=== PATIENT | male | born 1945 | race Caucasian/White ===

== ENCOUNTER 2020-03-14 20:52 | Emergency (ER) | payer BC, OTHER ==
[~2020-03-14] VITALS: Ht 177.8 cm; Wt 106.7 kg
[2020-03-14] MEDS ORDERED: METH-855 PO (22:02)
[2020-03-14] MEDS ORDERED: ASCO500T PO (22:02)
[2020-03-14] MEDS ORDERED: POTA20PW GT (22:02)
[2020-03-14] MEDS ORDERED: PEG1POW PO (22:02)
[2020-03-14] MEDS ORDERED: BACL1TAB9 PO (22:02)
[2020-03-14] MEDS ORDERED: METF500T13 PO (22:02)
[2020-03-14] MEDS ORDERED: SIMV20TA22 PO (22:02)
[2020-03-14] MEDS ORDERED: PANT40TA29 PO (22:02)
[2020-03-14] MEDS ORDERED: METF850T4 PO (22:02)
[2020-03-14] MEDS ORDERED: TROS20TA3 PO (22:02)
[2020-03-14] MEDS ORDERED: CALC1TAB63 PO (22:02)
[2020-03-14] MEDS ORDERED: CIPR-249 PO (23:29)
[2020-03-14 23:30] VITALS: BP 100/55
[2020-03-14] MEDS ORDERED: ACETAMINOPHEN TAB 650MG DOSE (2X325MG) PO ONE (23:30)
[2020-03-14] MEDS ORDERED: CIPROFLOXACIN 500MG TABLET PO ONE (23:30)
== END 2020-03-15 00:37 | disposition home or self-care (01) ==
LOC: EDBD 20:52 → M ED 20:52
DX: T83.018A Breakdown (mechanical) of other urinary catheter, initial encounter (principal); Y73.2 Prosthetic and other implants, materials and accessory gastroenterology and urology devices associated with adverse incidents; N39.0 Urinary tract infection, site not specified; G82.50 Quadriplegia, unspecified; Z93.3 Colostomy status; Z79.899 Other long term (current) drug therapy; Z79.84 Long term (current) use of oral hypoglycemic drugs

== ENCOUNTER 2020-04-22 13:59 | Emergency (ER) | payer MEDICARE, OTHER, BC ==
[~2020-04-22 13:59] MED LIST: ASCO500T PO; BACL1TAB9 PO; CALC1TAB63 PO; CIPR-249 PO; METF500T13 PO; METF850T4 PO; METH-855 PO; PANT40TA29 PO; PEG1POW PO; POTA20PW GT; SIMV20TA22 PO; TROS20TA3 PO
[2020-04-22 16:56] LABS: BASO % 0.1 % (0.0-1.0); EOS # 0.1 10^3/uL (0.0-0.5); EOS % 1.1 % (0.0-3.0); HEMATOCRIT 36.8 % (42.0-52.0); HEMOGLOBIN 11.7 g/dl (13.5-17.5); LYMPH # 1.7 10^3/uL (1.5-5.0); LYMPH % 20.5 % (24.0-44.0); MEAN CORPUSCULAR HEMOGLOBIN 29.2 pg (27.0-33.0); MEAN CORPUSCULAR HGB CONC 31.8 g/dl (32.0-36.5); MEAN CORPUSCULAR VOLUME 91.8 fl (80.0-96.0); MONO # 0.5 10^3/uL (0.0-0.8); MONO % 5.6 % (0.0-5.0); NEUTROPHILS % 72.3 % (36.0-66.0); PLATELET COUNT, AUTOMATED 171 10^3/uL (150-450); RED BLOOD COUNT 4.01 10^6/uL (4.30-6.10); WHITE BLOOD COUNT 8.3 10^3/uL (4.0-10.0)
--- NOTE | 2020-04-22 17:25 | REP ---
INDICATION: DYSPNEA/COUGH. COMPARISON: None. TECHNIQUE: Sitting AP portable chest radiograph. FINDINGS: Monitoring electrodes are seen. The patient is status post lower cervical spine fusion. There are degenerative changes in the shoulders bilaterally and in the thoracic spine. There is a linear density in the left lung base consistent with platelike atelectasis or fibrosis. Lung lr are otherwise clear. Heart is not enlarged. Pulmonary vasculature is not increased. IMPRESSION: Platelike atelectasis versus linear scarring left base. Otherwise no active disease. <Electronically signed by Ted Jovel > 04/22/20 [id number]
[2020-04-22 17:28] LABS: ALT/SGPT 19 U/L (12-78); BILIRUBIN,DIRECT 0.1 MG/DL (0.0-0.2); BILIRUBIN,TOTAL 0.7 MG/DL (0.2-1.0); BLOOD UREA NITROGEN 11 MG/DL (7-18); CALCIUM LEVEL 8.5 MG/DL (8.8-10.2); CARBON DIOXIDE LEVEL 28 MEQ/L (21-32); CHLORIDE LEVEL 102 MEQ/L (98-107); CK-MB VALUE MASS < 1.0 NG/ML (<3.6); CPK CREATINE PHOSPHOKINASE 96 U/L (39-308); CREATININE FOR GFR 0.72 MG/DL (0.70-1.30); GLOMERULAR FILTRATION RATE > 60.0 (>42); GLUCOSE, FASTING 113 MG/DL (70-100); MB/CK RELATIVE INDEX 1.04 (< OR =4); NT-PRO BNP 137 PG/ML (<125); POTASSIUM SERUM 3.9 MEQ/L (3.5-5.1); SODIUM LEVEL 135 MEQ/L (136-145); TOTAL PROTEIN 6.6 GM/DL (6.4-8.2); TROPONIN I < 0.02 NG/ML (< 0.10)
[2020-04-22] MEDS ORDERED: SIME180C PO (17:34)
[2020-04-22] MEDS ORDERED: ESSE250T PO (17:34)
[2020-04-22 18:45] VITALS: BP 152/66
--- NOTE | 2020-04-22 19:32 | ECGEPIP ---
[facility] - ED Test Date: 2020-04-22 Pat Name: IAN PHAM Department: Room: - Gender: Male [employer]: bo : 1945 Requested By: Mor Teixeira Order Number: [id number] Reading MD: Mor Teixeira Measurements Intervals [place] Rate: 70 P: 22 ID: [id number] QRS: 20 QRSD: 89 T: 19 QT: 397 QTc: 429 Interpretive Statements SINUS RHYTHM WITH OCCASIONAL VENTRICULAR PREMATURE COMPLEXES WITH FREQUENT SUP SUPRAVENTRICULAR PREMATURE COMPLEXES ABNORMAL RHYTHM ECG NONSPECIFIC ST T WAVE CHANGES NO PRIOR ECG FOR COMPARISON Electronically Signed on 04-22-2020 19:32:29 EST by Mor Teixeira
== END 2020-04-22 18:50 | disposition home or self-care (01) ==
LOC: M ED 13:59 → EDBD 13:59 → M ED 18:50
DX: R06.00 Dyspnea, unspecified (principal); Z79.899 Other long term (current) drug therapy; Z79.84 Long term (current) use of oral hypoglycemic drugs

== ENCOUNTER 2020-11-20 13:29 | Emergency (ER) | payer MEDICARE, BC, OTHER, MEDICAID ==
[~2020-11-20] VITALS: Ht 177.8 cm; Wt 118.2 kg
[~2020-11-20 13:29] MED LIST changes: +ESSE250T PO; -PEG1POW PO; +POLY17PO10 PO; +SIME180C25 PO
[2020-11-20 14:24] LABS: BASO % 0.2 % (0.0-1.0); EOS # 0.1 10^3/uL (0.0-0.5); EOS % 1.4 % (0.0-3.0); HEMATOCRIT 41.3 % (42.0-52.0); HEMOGLOBIN 13.2 g/dl (13.5-17.5); LYMPH % 20.1 % (24.0-44.0); MEAN CORPUSCULAR HEMOGLOBIN 29.6 pg (27.0-33.0); MEAN CORPUSCULAR VOLUME 92.6 fl (80.0-96.0); MONO # 0.3 10^3/uL (0.0-0.8); MONO % 6.7 % (2.0-8.0); NEUTROPHILS # 3.5 10^3/uL (1.5-8.5); NEUTROPHILS % 70.6 % (36.0-66.0); PLATELET COUNT, AUTOMATED 165 10^3/uL (150-450); RED BLOOD COUNT 4.46 10^6/uL (4.30-6.10); WHITE BLOOD COUNT 4.9 10^3/uL (4.0-10.0)
[2020-11-20 14:57] LABS: BLOOD UREA NITROGEN 9 MG/DL (7-18); CALCIUM LEVEL 8.6 MG/DL (8.8-10.2); CARBON DIOXIDE LEVEL 29 MEQ/L (21-32); CHLORIDE LEVEL 103 MEQ/L (98-107); CREATININE FOR GFR 0.74 MG/DL (0.70-1.30); GLOMERULAR FILTRATION RATE > 60.0 (>42); GLUCOSE, FASTING 195 MG/DL (70-100); SODIUM LEVEL 142 MEQ/L (136-145)
[2020-11-20] MEDS ORDERED: CLOPIDOGREL 300 MG TAB (PLAVIX) PO ONE (16:30)
[2020-11-20] MEDS ORDERED: HEPARIN SOD (PORCINE) 5000UNITS/ML 1ML VIAL/SYRINGE IV ONE (16:30)
[2020-11-20] MEDS ORDERED: HEPARIN DRIP 25,000 UNITS in IV 1 EA IV SCH (16:30)
[2020-11-20 17:05] LABS: INR 0.99; PROTHROMBIN TIME 13.3 SECONDS (12.5-14.3)
[2020-11-20 17:06] LABS: PARTIAL THROMBOPLASTIN TIME 30.1 SECONDS (24.2-38.5)
[2020-11-20 17:32] LABS: RSV AMPLIFICATION NEGATIVE (NEGATIVE)
[2020-11-20 19:45] VITALS: BP 110/58
== END 2020-11-20 19:54 | disposition short-term general hospital (02) ==
LOC: M ED 13:29 → EDBD 13:29 → M ED 19:54
DX: I21.4 Non-ST elevation (NSTEMI) myocardial infarction (principal); E11.9 Type 2 diabetes mellitus without complications; K21.9 Gastro-esophageal reflux disease without esophagitis; Z79.84 Long term (current) use of oral hypoglycemic drugs; Z79.899 Other long term (current) drug therapy; Z93.3 Colostomy status
CPT/HCPCS: 71045; 80048; 84484; 85025; 85610; 85730; 87631; 93005; 93041; 94760; 96374; 96375; 99285; J1644

== ENCOUNTER 2021-03-01 18:07 | Emergency (ER) | payer MEDICARE, BC, OTHER, MEDICAID ==
[~2021-03-01] VITALS: Ht 177.8 cm; Wt 115.9 kg
--- OUTSIDE RECORDS SUMMARY | 2021-03-01 20:01 | CCD ---
Author Author [facility] Organization [facility] Address Unknown Phone Unavailable Care Team Providers Care Senior Principal Name Role Phone Helen Hidalgo MD Unavailable Unavailable Helen Hidalgo MD Unavailable Unavailable Helen Hidalgo MD Unavailable Unavailable Helen Hidalgo MD Unavailable Unavailable Helen Hidalgo MD Unavailable Unavailable Helen Hidalgo MD Unavailable Unavailable Helen Hidalgo MD Unavailable Unavailable Helen Hidalgo MD Unavailable Unavailable Helen Hidalgo MD Unavailable Unavailable Helen Hidalgo MD Unavailable Unavailable Helen Hidalgo MD Unavailable Unavailable Cindy HARDIN MD Unavailable Unavailable Cindy HARDIN MD Unavailable Unavailable Cindy HARDIN MD Unavailable Unavailable Cindy HARDIN MD Unavailable Unavailable Cindy HARDIN MD Unavailable Unavailable Cindy HARDIN MD Unavailable Unavailable Cindy HARDIN MD Unavailable Unavailable Cindy HARDIN MD Unavailable Unavailable Cindy HARDIN MD Unavailable Unavailable Cindy HARDIN MD Unavailable Unavailable Cindy HARDIN MD Unavailable Unavailable Cindy HARDIN MD Unavailable Unavailable Cindy HARDIN MD Unavailable Unavailable Cindy HARDIN MD Unavailable Unavailable Cindy HARDIN MD Unavailable Unavailable Cindy HARDIN MD Unavailable Unavailable Cindy HARDIN MD Unavailable Unavailable Cindy HARDIN MD Unavailable Unavailable Cindy HARDIN MD Unavailable Unavailable Cindy HARDIN MD Unavailable Unavailable Cindy HARDIN MD Unavailable Unavailable Cindy HARDIN MD Unavailable Unavailable HUMAYUN, U KASEY MD Unavailable Unavailable HUMAYUN, U KASEY MD Unavailable Unavailable HUMAYUN, U KASEY MD Unavailable Unavailable HUMAYUN, U KASEY MD Unavailable Unavailable HUMAYUN, U KASEY MD Unavailable Unavailable HUMAYUN, U KASEY MD Unavailable Unavailable HUMAYUN, U KASEY MD Unavailable Unavailable HUMAYUN, U KASEY MD Unavailable Unavailable HUMAYUN, U KASEY MD Unavailable Unavailable HUMAYUN, U KASEY MD Unavailable Unavailable HUMAYUN, U KASEY MD Unavailable Unavailable HUMAYUN, U KASEY MD Unavailable Unavailable Re-disclosure Warning The records that you are about to access may contain information from federally-assisted alcohol or drug abuse programs. If such information is present, then the following federally mandated warning applies: This information has been disclosed to you from records protected by federal confidentiality rules (42 CFR part 2). The federal rules prohibit you from making any further disclosure of this information unless further disclosure is expressly permitted by the written consent of the person to whom it pertains or as otherwise permitted by 42 CFR part 2. A general authorization for the release of medical or other information is NOT sufficient for this purpose. The Federal rules restrict any use of the information to criminally investigate or prosecute any alcohol or drug abuse patient.The records that you are about to access may contain highly sensitive health information, the redisclosure of which is protected by Article 27-F of the [facility] Public Health law. If you continue you may have access to information: Regarding HIV / AIDS; Provided by facilities licensed or operated by the [facility] Office of Mental Health; or Provided by the [facility] Office for People With Developmental Disabilities. If such information is present, then the following [facility] mandated warning applies: This information has been disclosed to you from confidential records which are protected by state law. State law prohibits you from making any further disclosure of this information without the specific written consent of the person to whom it pertains, or as otherwise permitted by law. Any unauthorized further disclosure in violation of state law may result in a fine or halfway sentence or both. A general authorization for the release of medical or other information is NOT sufficient authorization for further disc losure. Allergies and Adverse Reactions Type Description Substance Reaction Status Data Source(s ) Propensity to adverse reactions NO KNOWN ALLERGIES NO KNOWN ALLERGIES [facility] Propensity to adverse reactions ALLERGIES NOT ON FILE ALLERGIES NOT O N FILE [facility] Services Encounters Encounter Providers Location Date Indications Data Source(s ) Inpatient Attender: KASEY HARDIN MDAt tender: Helen Hidalgo MDAdmitter: Helen Hidalgo MD [id number] 11/20/2020 09:21:00 PM EDT - 11/22/2020 04:56:[address] [facility] Patient discharged. Unknown [address] [address] 08/16/2020 12:00:00 AM EDT eCW1 ([facility]) (WND STRTCH) Stretcher Required Patients [address] [place] [address] 07/21/2020 12:00:00 AM EST eCW1 ([facility]) Unknown [address] [address] 07/20/2020 12:00:00 AM EST eCW1 ([facility]) Unknown [address] [address] 07/08/2020 12:00:00 AM EST eCW1 ([facility]) (WND STRTCH) Stretcher Required Patients [address] [place] [address] 07/07/2020 12:00:00 AM EST eCW1 ([facility]) (WND STRTCH) Stretcher Required Patients [address] [place] [address] 06/23/2020 12:00:00 AM EST eCW1 ([facility]) Unknown [address] [address] 06/16/2020 12:00:00 AM EST eCW1 ([facility]) (WND STRTCH) Stretcher Required Patients [facility] [place] [address] 06/09/2020 12:00:00 AM EST eCW1 ([facility]) Medications Medication Brand Name Start Date Product Form Dose Route Admi nistrative Instructions Pharmacy Instructions Status Indications Reaction Description Data Source(s) Acetaminophen 325 MG Oral Tablet acetaminophen (TYLENO L) 325 MG tablet acetaminophen (TYLENOL) 325 MG tablet 11/22/2020 12:00:00 AM EDT 65 0 mg Oral active Take 2 tablets (650 mg total) by mouth every 6 (six) hours as needed [facility] sodium chloride 0.9% (NS) infusion [id number] 11/21/2020 05:00:00 P M EDT Intravenous completed at 100 mL/hr, Intravenous, Continuous, Starting on 11/21/20 at 1700, For 3 hours, Post-op [facility] Medication administered onsite Acetaminophen 325 MG Oral Tablet acetaminophen (TYLENO L) 325 MG tablet 650 mg acetaminophen (TYLENOL) 325 MG tablet 650 mg 11/21/2020 04:33:04 PM EDT 650 mg Oral active 650 mg, Or al, Every 4 hours PRN, headaches, and non cardiac pain, Starting on 11/21/20 at 1633, Post-op
"Maximum dose of acetaminophen is 4,000 mg from all sources in 24 hours."
[facility] Medication administered onsite Nitroglycerin 0.4 MG Sublingual Tablet n itroglycerin (NITROSTAT) SL tablet 0.4 mg nitroglycerin (NITROSTAT) SL tablet 0.4 mg 11/21/2020 04:33:04 P M EDT 0.4 mg Sublingual active 0.4 mg, S ublingual, Every 5 min PRN, chest pain, Starting on 11/21/20 at 1633, Post-op
May administer every 5 minutes for 3 doses and call cardio lab MD.
[facility] Medication administered onsite iopamidol (ISOVUE-370) 76 % [id number] 11/21/2020 03:49:58 PM EDT active As needed, Starting on 11/21/20 at 1549, Intra-Proc edure [facility] Medication administered onsite lidocaine 1 % injection [id number] 11/21/2020 03:38:42 PM EDT active As needed, Starting on Sun at 1538, Intra-Procedure [facility] Medication administered onsite fentaNYL Citrate (PF) (SUBLIMAZE) injection [id number] 11/21/2020 03:25:38 PM EDT active As neede d, Starting on 11/21/20 at 1525, Intra-Procedure [facility] Medication administered onsite 2 ML Midazolam 1 MG/ML Injection midazolam (VERSED) in jection midazolam (VERSED) injection 11/21/2020 03:25:30 PM EDT active As needed, Starting on 11/21/20 at 1525, Intra-Procedure [facility] Medication administered onsite clopidogrel 75 MG Oral Tablet clopidogrel (PLAVIX) tab let 75 mg clopidogrel (PLAVIX) tablet 75 mg 11/21/2020 02:00:00 PM EDT 75 mg Oral active 75 mg, Oral, Daily, First dose on 11/21/[address] [facility] Medication administered onsite Calcium Carbonate 1250 MG / Cholecalcife rol 200 UNT Oral Tablet calcium-vitamin D (OSCAL-500) 500-200 MG-UNIT per tablet 1 tablet calcium-vitamin D (OSCAL-500) 500-200 MG-UNIT per tablet 1 tablet 11/21/2020 09:00:00 AM EDT 1 {tbl } Oral active 1 tablet, Oral, Daily, First dose on 11/21/[address] [facility] Medication administered onsite Magnesium Oxide (MAG-OX) tablet 200 mg [id number] 09:00:00 AM EDT 200 mg Oral active 200 mg, Oral, Da enriqueta, First dose on 11/21/[address] [facility] Medication administered onsite potassium chloride (KLOR-CON) packet 20 mEq [id number] 11/21/2020 09:00:00 AM EDT 20 meq Oral active 20 mEq, Oral, Daily, First dose on 11/21/[address] [facility] Medication administered onsite POLYETHYLENE GLYCOL 3350 142 MG/ML Oral Solution polyethylene glycol (GLYCOLAX) packet 17 g polyethylene glycol (GLYCOLAX) packet 17 g 11/21/2020 09:00:00 AM EDT 17 g Oral active 17 g, Or al, Daily, First dose on 11/21/20 at 0900
hold for loose stools
[facility] Medication administered onsite pantoprazole 40 MG Delayed Release Oral Tablet pantoprazole (PROTONIX) EC tablet 40 mg pantoprazole (PROTONIX) EC tablet 40 mg 11/21/2020 09:00:00 AM E DT 40 mg Oral active Gastroesophageal Reflux Diseas e 40 mg, Oral, Daily, Indications: Gastroesophageal Reflux Disease, First dose on 11/21/[address] [facility] Gastroesophageal Reflux Disease Medication administered onsite Insulin Lispro 100 UNT/ML Injectable Naya ution insulin lispro (HumaLOG) injection 1-6 Units insulin lispro (HumaLOG) injection 1-6 Units 08:00:00 AM EDT U Subcutaneous active 1-6 Units, Subcutaneous, MEALSS, First dose on 11/21/20 at 0800
Frail 3 units Nutritional and Correction Insulin Scale Blood Glucose (mg/dl) <70 start hypoglycemia protocol Glucose &nbsp ; Eats >=50% Eats &l t;50% Eats Nothing (mg/dl) of meal of meal or NPO &nb sp; 70- 120 2 units 1 units 0 units 121-170 & nbsp; 3 units 2 units 0 units 171-220 &nbsp ; 4 units 2 units 1 units 221-270 &am p;nbsp; 4 units 3 units 1 units 271-320 &n bsp; 5 units 3 units 2 units 321- 370 5 units 4 units 2 units 371- 420 6 units 4 units 3 units >420 call MD 6 units 5 units 3 units Test glucose within 30 minutes of insulin administration. Administer insulin within 15 minutes (before or after) of t he patient starting to eat. For patients that are NPO, use the NPO (correction) scale to cover POC glucose at 08:00, 12:00, 17:00.
[facility] Medication administered onsite methenamine hippurate 1000 MG Oral Tablet methenamine (HIPREX) tablet 1 g methenamine (HIPREX) tablet 1 g 11/20/2020 11:00:00 PM EDT 1 g O ral active 1 g, Oral, 2 times daily, First dose on 11/20/[address] [facility] Medication administered onsite 500 ML heparin sodium, porcine 50 UNT/ML Injection heparin infusion 25,000 units in 500 mL 0.45% NaCl heparin infusion 25,000 units in 500 mL 0.45% NaCl 11/20/2020 10:00:00 PM EDT 11.7 U/kg/h Intravenous abort ed 11.7 Units/kg/hr 115 kg (26.91 mL/hr, rounded to 26.9 mL/hr), Intravenous, at 26.9 mL/hr, Continuous, Starting on 11/20/20 at 2200
For Cardiac/BridgeaPTT (seconds) Heparin Dose (weight based)< 34 Bolus: 60 units/kg IV (Maximum bolus: 5,000 units) and increase infusion 3 units/kg/hr IV34 - 50 Bolus: 30 units/kg IV (Maximum bolus: 5,000 units) and increase infusion 2 units/kg/hr IV50.1 - 58 No bolus. Increase infusion 1 unit/kg/hr IV58.1 - 87 Therapeutic, No Udshfj02.1 - 97 Decrease infusion 1 unit/kg/hr IV 97.1 - 110Hold infusion for 30 minutes & decrease infusion 2 units/kg/hr IV> 110 Call MD if patient is bleeding. Hold infusion for 60 minutes & decrease infusion 3 units/kg/hr IVInitial heparin IV infusion rate:Do not exceed 1000 units/hr or 12 units/kg/hr initially (whichever is less)Infuse this medication only through single port tubing (SmartSite Infusion Set ref [id number]). Medication and tubing is to be discarded if infusion off for [address]
[facility] Medication administered onsite Simvastatin 20 MG Oral Tablet simvastatin (ZOCOR) tabl et 20 mg simvastatin (ZOCOR) tablet 20 mg 11/20/2020 10:00:00 PM EDT 20 mg Oral active 20 mg, Oral, Nightly, First dose on 11/20/[address] [facility] Medication administered onsite Baclofen 10 MG Oral Tablet baclofen (LIORESAL) tablet 20 mg baclofen (LIORESAL) tablet 20 mg 11/20/2020 10:00:00 PM EDT 20 mg Oral activ e 20 mg, Oral, 3 times daily, First dose on 11/20/[address] [facility] Medication administered onsite normal saline flush 0.9 % injection 3 mL [id number] 11/20/2020 10:00:00 PM EDT 3 mL Intravenous active 3 mL , Intravenous, Every 8 hours (scheduled), First dose on 11/20/20 at 2200
flush per protocol, D/C Main IV fluid if appropriate
[facility] Medication administered onsite trospium chloride 20 MG Oral Tablet trospium (SANCTURA ) tablet 20 mg trospium (SANCTURA) tablet 20 mg 11/20/2020 10:00:00 PM EDT 20 mg Oral active 20 mg, Oral, 2 times daily, First dose on 11/20/[address] [facility] Medication administered onsite 1 ML heparin sodium, porcine 1000 UNT/ML Injection heparin (porcine) injection 100-5,000 Units heparin (porcine) injection 100-5,000 Units 11/20/2020 09:26:37 PM EDT U Intravenous aborted 100- 5,000 Units, Intravenous, As needed, other, Starting on 11/20/20 at 2126
Round dose to nearest 100 units aPTT: < 34 &n bsp; Bolus: 60 units/kg IV (Maximum bolus: 5,000 units) 34 - 50 Bolus: 30 units/kg IV (Maximum bolus: 5,000 units)
[facility] Medication administered onsite Insurance Providers Payer name Policy type / Coverage type Policy ID Covered alliance party ID Covered alliance party's relationship to garcia Policy Garcia Plan Information COMMERCIAL GENERIC [id number] Vale [id number] MEDICARE A [id number] Self [id number] V33 MEDICARE [id number] Vale [id number] [id number] COMMERCIAL GENERIC [id number] Vale [id number] EMPIRE PLAN [facility] U [id number] [facility] [id number] Medicare [id number] Self [id number] V33 Medicare [id number] Self [id number] [id number] MEDICAID [id number] Self [id number] EXCELLUS BCBS [id number] Formerly Named [facility] YLS [id number] MEDICAID [id number] Vale [id number] ADMINISTRATION [id number] SP [id number] ELMA [id number] SP [id number] [facility] [id number] [facility] [id number] Excellus [id number] self [id number] MEDICARE PART B MCR [id number] A [id number] MEDICARE PART A MCR [id number] A [id number] [id number] [facility] [id number] self [id number] Excellus [id number] Spouse [id number] Medicaid [id number] Self [id number] Medicare [id number] Self [id number] V33 Medicare [id number] Self [id number] V33 [facility] [id number] 89 [id number] [facility] MEDICARE PART B [facility] [id number] A [id number] MEDICARE PART A MCR [id number] A [id number] MEDICARE PART B MCR [id number] A [id number] MEDICARE PART A MCR [id number] A [id number] MEDICARE [id number] SP [id number] A [facility] MEDICA[facility] [id number] SP [id number] MEDICARE [id number] SP [id number] MEDICARE [id number] SP [id number] [facility] [id number] BCBS [facility] RAISSA DIV [id number] COMMERCIAL GENERIC [id number] COMMERCIAL GENERIC [id number] Vale [id number] 'S ADMINISTRATION [id number] SP [id number] ELMA [id number] SP [id number] OTHER B [id number] Self [id number] V33 EMEDNY [id number] SP [id number] Problems, Conditions, and Diagnoses Code Display Name Description Problem Type Effective Dates Data Source(s) G82.50 Quadriplegia, unspecified Quadriplegia, unspecified Di agnosis 11/20/2020 09:21:[address] [facility] E11.9 Type 2 diabetes mellitus without complic ations Type 2 diabetes mellitus without complic Diagnosis 11/20/2020 09:21:[address] [facility] Z93.3 Colostomy status Colostomy status Diagnosis 11/20/2020 09 :21:[address] [facility] Z97.8 Presence of other specified devices Presence of other specified devices Diagnosis 11/20/2020 09:21:00 PM EDT [facility] I21.4 Non-ST elevation (NSTEMI) myocardial inf arction Non-ST elevation (NSTEMI) myocardial inf Diagnosis 11/20/2020 09:21:[address] [facility] R07.9 Chest pain, unspecified Chest pain, unspecified Diagno sis 11/20/2020 09:21:[address] [facility] Z97.8 Chronic indwelling Pierre catheter Chronic indwel ling Pierre catheter [id number] 11/20/2020 12:00:00 AM EDT [facility] Z93.[address] Colostomy in place [id number] 12:00:[address] [facility] E11.9 DM (diabetes mellitus) DM (diabetes mellitus) [id number] 11/20/2020 12:00:[address] [facility] G82.50 Quadriplegia Quadriplegia [id number] 11/20/2020 12:00:[address] [facility] I21.4 NSTEMI (non-ST elevated myocardial infar ction) NSTEMI (non-ST elevated myocardial infarction) [id number] 11/20/2020 12:00:00 AM EDT [facility] R07.9 Chest pain Chest pain [id number] 11/20/2020 12:00:[address] [facility] L89.153 [id number] Stage III pressure ulcer of sacral region Problem 06/09/2020 12:00:00 AM EST eCW1 ([facility]) Surgeries/Procedures Procedure Description Date Indications Data Source(s) BLOOD COUNT COMPLETE AUTOMATED <td>CBC</td><td>Routine </td><td>11/22/2020 4:37 AM EDT</td><td></td><td> </td> 11/22/2020 04:37:[address] [facility] MAGNESIUM <td>MAGNESIUM</td><td>Routin e</td><td>11/22/2020 4:37 AM EDT</td><td></td><td> </td> 11/22/2020 04:37:[address] [facility] BASIC METABOLIC PANEL CALCIUM TOTAL <td>BASIC METABOLI C PANEL</td><td>Routine</td><td>11/22/2020 4:37 AM EDT</td><td></td><td> </td> 11/22/2020 04:37:[address] [facility] GLUC BLD GLUC MNTR DEV CLEARED FDA SPEC HOME USE <td>P OCT GLUCOSE</td><td>Routine</td><td>11/21/2020 8:43 PM EDT</td><td></td><td> </td> 11/21/2020 08:43:[address] [facility] CARDIAC CATHETERIZATION <td>CARDIAC CATHETERIZATION</td><td>Routine</td><td>11/21/2020 3:50 PM EDT</td><td> Chest pain, unspecified type NSTEMI (non-ST elevated myocardial infarction)</td><td> </td> 11/21/2020 03:50:51 PM EDT NSTEMI (non-ST elevated myocardial infar ction)Chest pain, unspecified type [facility] NSTEMI (non-ST elevated myocardial infar ction) Chest pain, unspecified type GLUC BLD GLUC MNTR DEV CLEARED FDA SPEC HOME USE <td>P OCT GLUCOSE</td><td>Routine</td><td>11/21/2020 12:22 PM EDT</td><td></td><td> </td> 11/21/2020 12:22:[address] [facility] ECHO TTHRC R-T 2D W/WOM-MODE COMPL SPEC&COLR DOP <td>E CHOCARDIOGRAM TRANSTHORACIC</td><td>Routine</td><td>11/21/2020 11:42 AM EDT</td><td></td><td> </td> 11/21/2020 11:42:[address] [facility] TROPONIN QUANTITATIVE <td>TROPONIN I</td><td>Routi ne</td><td>11/21/2020 6:43 AM EDT</td><td></td><td> </td> 11/21/2020 06:43:[address] [facility] THROMBOPLASTIN TIME PARTIAL PLASMA/WHOLE BLOOD <td>APTT</td><td>STAT</td><td>11/21/2020 6:43 AM EDT</td><td></td><td> </td> 11/21/2020 06:43:[address] [facility] BLOOD COUNT COMPLETE AUTOMATED <td>CBC</td><td>Routine </td><td>11/21/2020 6:43 AM EDT</td><td></td><td> </td> 11/21/2020 06:43:[address] [facility] BASIC METABOLIC PANEL CALCIUM TOTAL <td>BASIC METABOLI C PANEL</td><td>Routine</td><td>11/21/2020 6:43 AM EDT</td><td></td><td> </td> 11/21/2020 06:43:[address] [facility] PROCALCITONIN (PCT) <td>PROCALCITONIN</td><td>ST AT</td><td>11/20/2020 10:19 PM EDT</td><td></td><td> </td> 11/20/2020 10:19:[address] [facility] NT PRO BNP <td>NT PRO BNP</td><td>STAT< /td><td>11/20/2020 10:19 PM EDT</td><td></td><td> </td> 11/20/2020 10:19:[address] [facility] TROPONIN QUANTITATIVE <td>TROPONIN I</td><td>STAT< /td><td>11/20/2020 10:19 PM EDT</td><td></td><td> </td> 11/20/2020 10:19:[address] [facility] THROMBOPLASTIN TIME PARTIAL PLASMA/WHOLE BLOOD <td>APTT</td><td>STAT</td><td>11/20/2020 10:19 PM EDT</td><td></td><td> </td> 11/20/2020 10:19:[address] [facility] PROTHROMBIN TIME <td>PROTIME-INR</td><td>STAT </td><td>11/20/2020 10:19 PM EDT</td><td></td><td> </td> 11/20/2020 10:19:[address] [facility] BLOOD COUNT COMPLETE AUTO&AUTO DIFRNTL WBC COUNT <td>C BC AND DIFFERENTIAL</td><td>STAT</td><td>11/20/2020 10:19 PM EDT</td><td></td><td> </td> 11/20/2020 10:19:[address] [facility] MAGNESIUM <td>MAGNESIUM</td><td>STAT</ td><td>11/20/2020 10:19 PM EDT</td><td></td><td> </td> 11/20/2020 10:19:[address] [facility] HEMOGLOBIN GLYCOSYLATED A1C <td>HEMOGLOBIN A1C</td><td >STAT</td><td>11/20/2020 10:19 PM EDT</td><td></td><td> </td> 11/20/2020 10:19:[address] [facility] LIPID PANEL <td>LIPID PANEL</td><td>Add- On</td><td>11/20/2020 10:19 PM EDT</td><td></td><td> </td> 11/20/2020 10:19:[address] [facility] COMPREHENSIVE METABOLIC PANEL <td>COMPREHENSIVE METABO LIC PANEL</td><td>STAT</td><td>11/20/2020 10:19 PM EDT</td><td></td><td> </td> 11/20/2020 10:19:[address] [facility] XR CHEST PORTABLE <td>XR CHEST PORTABLE</td><t d>STAT</td><td>11/20/2020 9:52 PM EDT</td><td></td><td> </td> 11/20/2020 09:52:[address] [facility] ECG ROUTINE ECG W/LEAST 12 LDS TRCG ONLY W/O I&R <td>E CG 12- LEAD</td><td>STAT</td><td>11/20/2020 9:28 PM EDT</td><td></td><td></td> 11/20/2020 09:28:37 PM EDT [facility] FINE NEEDLE ASPIRATION W/O IMAGING GUIDANCE 07/21/2020 12:00:00 AM EST eCW1 ([facility]) FINE NEEDLE ASPIRATION W/O IMAGING GUIDANCE 06/23/2020 12:00:00 AM EST eCW1 ([facility]) FINE NEEDLE ASPIRATION W/O IMAGING GUIDANCE 06/09/2020 12:00:00 AM EST eCW1 ([facility]) Results ID Date Data Source [id number] 02/07/2021 12:00:00 AM EDT [facility] Name Value Range Interpretation Code Description Data Amina rce(s) Supporting Document(s) SARS-CoV-2 (COVID-19) RNA [Presence] in Respiratory specimen by LARRY with probe detection Negative [facility] This lab was ordered by [facility] and [facility] ID Date Data Source [id number] 11/24/2020 08:32:02 AM EDT [facility] Name Value Range Interpretation Code Description Data Amina rce(s) Supporting Document(s) POC NOVA GLU 174 mg/dL (70-99) H [facility] [place] PERFORMED BY [facility] ID Date Data Source [id number] 11/22/2020 10:02:16 [facility] Name Date of Age Gend*PT [id number] Ian Pham 1945 74 years M IPPT Location Admission Date/Time Visit ID Attending [id number] 11/20/202120 --- Kasey Hardin MD([id number]) EPI ID CSN Admitting Provider [id number] Helen Hidalgo MD([id number])DISCHARGE SUMMARYRobert [id number]/18/1946dmitting provider: Helen Hidalgo MDDischarge provider: Kasey Hardin MDAdmission date: 11/20/2020 9:21 PMDischarge date: 11/22/2020dmission diagnoses: NSTEMI (non-ST elevated myocardial infarction) [I21.4]Discharge diagnosis:Patient Active Problem ListDiagnosis Chest pain NSTEMI (non-ST elevated myocardial infarction) Quadriplegia DM (diabetes mellitus) Colostomy in place Chronic indwelling Pierre catheterConsultations:Genesis Porras MDImagining and Procedures:CXR:IMPRESSION:No active pulmonary disease.Echo:Normal left ventricular systolic function and size with mild concentric leftventricular hypertrophy. Grade I diastolic dysfunctionNormal right ventricular systolic function and size.The left atrium appears mildly dilated.Mild aortic sclerosis without stenosis.The mitral valve leaflets appear mildly thickened. Trivial mitralinsufficiency.Mild tricuspid insufficiency with the resting pulmonary artery pressures mildlyelevated.Cardiac Cath:Mid LAD lesion is 20% stenosed.Mild CADHospital course:74/M with H/O DM2, HLD, Quadriplegia, Chronic Pierre, presents to [facility] c/o chestpressure. Pt developed midsternal chest pressure while eating lunch today.Family became concerned after pt c/o of numbness in his arms and legs and calledEMS. Pt states that he occasionally has similar episodes of numbness which isresolved by repositioning. EMS gave pt 324 mg ASA and pt's pain and numbnessresolved during EMS ride/before he arrived to [facility]. Pt was foundto have mild troponin elevation and was loaded with Plavix and started on aHeparin gtt. Pt was subsequently transferred to [facility]. -Chest pressure/NSTEMITroponin 0 [facility] trop[facility] 0.61 and now 0.05Denies any chest pressure or limb tingling or numbness now [facility] heparin infusionEcho PCardiology consult called -DM2-A1C - 7SSI -Chronic Pierre/Bladder SpasmsContinue home medications, Baclofen, Tropsium, Methenamine -QuadriplegiaPt fell on ice while carrying wood in 2018 -HLDLipid panel- PContinue home medication, Statin -CODE STATUSFC -COVID19 Not Detected 11/20/2020 at [facility] Addendum: 11/23/2011Patient was seen by cardiology service. Cardiology Was recommended. Itrevealed minimal CAD with 20% LAD. Patient did not have any recurrence chestpain tingling and numbness. His vague chest pressure was noncardiac.An echo was also done which revealed normal LV function with no wall motionabnormality.Currently patient is hemodynamically stable and symptomatically at his baselineis going to be discharged back to home.PHYSICAL EXAMVital Signs: Temp: [97.5 F-98.8 F] 98 FHeart Rate: [61-72] 65Resp: [18] 18BP: (107-137)/(54-62) 126/59 I/O:Intake/Output Summary (Last 24 hours) at 11/22/2020 0941Last data filed at 11/22/2020 0500Gross per 24 hourIntake 290 mlOutput 525 mlNet -235 mlConstitutional - He is oriented to person, place, and time. He appearswell- developed and well-nourished. No distress.HENT - Normocephalic and atraumatic. External ears normal. Nose normal.Eyes - no conjunctival icterusNeck - No JVD present.Cardiovascular - Normal rate, regular rhythm, normal heart sounds. Exam revealsno gallop and no friction rub. No murmur heard.Pulmonary/Chest - Effort normal and breath sounds normal. No respiratorydistress. He has no wheezes, no rhonchi, no rales. He exhibits no chestwalltenderness.Abdominal - Soft. There is no tenderness. Bowel sounds are normal. He exhibitsno abdominal distention or mass. There is no rebound and no guarding. No largeabdominal hernia.Musculoskeletal - No peripheral edema.Neurological - He is alert and oriented to person, place, and time. He isquadriplegic.Skin - Warm and dry. No rash noted. He is not diaphoretic.Psychiatric - He has a normal mood and affect.Disposition: Home or Self CareDischarge condition: goodDischarge Instructions: An After Visit Summary was printed and given to thepatient.Your medication listSTART taking these medications Instructions Last Dose Given Morning Afternoon Evening Bedtime As Neededacetaminophen 325 MG tabletCommonly known as: TYLENOL Take 2 tablets (650 mg total) by mouth every 6 (six) hours as neededCONTINUE taking these medications Instructions Last Dose Given Morning Afternoon Evening Bedtime As Neededascorbic acid 500 MG tabletCommonly known as: VITAMIN C Take 500 mg by mouth dailybaclofen 20 MG tabletCommonly known as: LIORESAL Take 20 mg by mouth 4 (four) times a dayCalcium 600+D 600-400 MG-UNIT per tabletGeneric drug: Calcium Carbonate-Vitamin D Take 1 tablet by mouth 2 (two) times a dayDaily Radha per tablet Take 1 tablet by mouth dailyMagnesium Oxide 400 MG tabletCommonly known as: MAG-OX Take 800 mg by mouth 2 (two) times a daymetFORMIN 500 MG 24 hr tabletCommonly known as: GLUCOPHATE-XR Take 500 mg by mouth 2 (two) times a daymethenamine 1 g tabletCommonly known as: HIPREX Take 1 g by mouth 2 (two) times a day with mealspantoprazole 40 MG tabletCommonly known as: PROTONIX Take 40 mg by mouth dailypotassium chloride SA 20 MEQ tabletCommonly known as: K-DUR,KLOR-CON Take 40 mEq by mouth dailysenna-docusate 8.6-50 MGCommonly known as: PERICOLACE Take 1 tablet by mouth daily as needed for constipationsimethicone 80 MG chewable tabletCommonly known as: MYLICON Chew 80 mg dailysimvastatin 20 MG tabletCommonly known as: ZOCOR Take 20 mg by mouth nightlytrospium 20 MG tabletCommonly known as: SANCTURA Take 20 mg by mouth 2 (two) times a dayWhere to Get Your MedicationsThese medications were sent to [id number] [place], [place] [facility] [address] [facility] [place] [facility] [place] [address] [facility] [id number] acetaminophen 325 MG tabletTotal time spent for discharge was: greater than 30 minutesSignature: QUETA Streetate: November 22, 2020Time: 9:41 AMPh: [phone] Name Value Range Interpretation Code Description Data Amina rce(s) Supporting Document(s) ID Date Data Source [id number] 11/24/2020 08:31:57 AM EDT [facility] Name Value Range Interpretation Code Description Data Amina rce(s) Supporting Document(s) POC NOVA GLU 171 mg/dL (70-99) H [facility] [place] [facility] CLINICAL STAFF ID Date Data Source [id number] 11/22/2020 06:06:01 AM EDT [facility] Name Value Range Interpretation Code Description Data Amina rce(s) Supporting Document(s) SODIUM 140 mmol/L (136-145) [facility] POTASSIUM 3.8 mmol/L (3.6-5.2) [facility] CHLORIDE 106 mmol/L (100-108) [facility] CO2 28 mmol/L (22-31) [facility] ANION GAP 6 mmol/L (7-16) L [facility] UREA NITROGEN 10 mg/dL (7-24) [facility] CREATININE 0.65 mg/dL (0.80-1.30) L [facility] BUN/CREAT RATIO 15.4 RATIO (10.0-20.0) [facility] GLUCOSE 184 mg/dL (70-99) H [facility] CALCIUM 8.2 mg/dL (8.4-10.2) L [facility] GFR >60 ml/min/1.73m2 (>59) [facility] GFR ( AMER) >60 ml/min/1.73m2 (>59) [facility] GFR INTERPRETATION [facility] --NORMAL KIDNEY FUNCTION OR MILD DISEASE - GFR >OR= 60CHRONIC KIDNEY DISEASE - GFR 15 - 59RENAL FAILURE - GFR <15 Est. GFR calculation based on the MDRDstudy equation, which assumes a steadystate for creatinine. Est. GFR should notbe used for medication dosing. ID Date Data Source [id number] 11/22/2020 06:06:01 AM EDT [facility] Name Value Range Interpretation Code Description Data Amina rce(s) Supporting Document(s) MAGNESIUM 1.7 mg/dL (1.7-2.4) [facility] ID Date Data Source [id number] 11/22/2020 05:54:18 AM EDT [facility] Name Value Range Interpretation Code Description Data Amina rce(s) Supporting Document(s) WBC 4.6 10*3/uL (4.1-11.0) [facility] [place] RBC 4.06 10*6/uL (4.60-6.10) L [facility] HGB 12.3 g/dL (13.5-18.0) L [facility] HCT 36.8 % (41.0-53.0) L [facility] MCV 90.7 fL (80.0-95.0) [facility] MCH 30.4 pg (27.0-32.0) [facility] MCHC 33.6 g/dL (32.0-36.0) [facility] RDW 13.8 % (10.5-14.5) [facility] PLT 155 10*3/uL (150-450) [facility] MPV 8.4 fL (7.1-10.7) [facility] ID Date Data Source [id number] 11/21/2020 09:43:36 PM EDT [facility] Name Value Range Interpretation Code Description Data Amina rce(s) Supporting Document(s) POC NOVA GLU 128 mg/dL (70-99) H [facility] [place] [facility] CLINICAL STAFF ID Date Data Source [id number] 11/21/2020 04:00:[address] [facility] Name Value Range Interpretation Code Description Data Amina rce(s) Supporting Document(s) &PDF [facility] CCLFLd2tWiSSLaYl95/UPQskDWCnq8ExPEjuBYl4CXhlGVUwB8AfmHlvQEHZCD2SUM2hAc1YXVNDEQ6j oRX [file] 0K ID Date Data Source [id number] 11/21/2020 12:51:28 PM EDT [facility] INFORMATIONPatient MRN Name Date of Age Gend*PT [id number] Ian Pham 1945 74 years M IPPT Location Admission Date/Time Visit ID Attending [id number] 11/20/202120 --- Kasey Hardin MD([id number]) EPI ID CSN Admitting Provider [id number] Helen Hidalgo MD([id number])Cardiology Consult NoteRobert BraxtonMRN: [id number] of Stay: 1Reason for consult: Chest pain and elevated troponinConsulted request by Dr. HardinImpression and Recommendations:Principal Problem: NSTEMI (non-ST elevated myocardial infarction)Active Problems: Chest pain Quadriplegia DM (diabetes mellitus) Colostomy in place Chronic indwelling Pierre catheterImpression:1. Chest pain and non-STEMI: Patient has multiple risk factors for CAD. Hedeveloped 1 episode of chest pain yesterday which lasted for 15 to 20 minutes.His troponin was mildly elevated with peak troponin of 0.62. His EKG did notshow ischemic change. Ischemia needs to be ruled out.2. Type 2 diabetes3. Hyperlipidemia4. Quadriplegia after fall5. Chronic Pierre placementRecommendation:1. Concerning that patient has multiple risk of CAD with episode of chest painand elevated troponin, I will recommend patient to have cardiac catheterizationto be done today, NPO now2. Patient received loading dose Plavix and aspirin and he is on heparin drip3. We will continue aspirin, Plavix, statin4. I discussed with our director skills Dr. Eli about this case5. Cardiology will continue to follow6. Discussed with internal medicine attendingHPI: Patient is 74 years old gentleman with past med history of hyperlipidemia,type 2 diabetes, quadriplegia, chronic Pierre placement, [facility] and elevatedtroponin. Patient developed chest pain yesterday when he was eating lunch. Hischest pain is located on middle of his chest, 5/10, and no radiation. He deniesSOB, sweating, or dizziness. His family called the EMS and patient [facility]. Patient received aspirin 324 mg and his chest pain resolved.In local ED, he was found to have elevated troponin. He was given loading doseof Plavix and he was started on heparin drip. [facility]. Patient has a history of hyperlipidemia andtype 2 diabetes. He has quadriplegia after fall injury. He is using chronicFoley. After his transfer, patient was found to have normal renal function withnormal potassium. His hemoglobin is 12.6. His troponin has been trending downfrom 0.61 to 0.25. His EKG showed normal sinus rhythm, sinus arrhythmia,without ischemic ST-T change. Patient is chest pain-free now. Hisechocardiogram is pending. 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 DM (diabetes mellitus) QuadriplegiaPast Surgical History:Past Surgical History:Procedure Laterality Date COLOSTOMYMedications:Scheduled Meds: baclofen 20 mg Oral TID calcium-vitamin D 1 tablet Oral Daily insulin lispro 1-6 Units Subcutaneous With meals sliding scale Magnesium Oxide 200 mg Oral Daily methenamine 1 g Oral BID normal saline flush 3 mL Intravenous Q8H ARNOL pantoprazole 40 mg Oral Daily polyethylene glycol (MIRALAX) powder 17 g Oral Daily potassium chloride 20 mEq Oral Daily simvastatin 20 mg Oral Nightly trospium 20 mg Oral BIDContinuous Infusions: heparin (porcine) in NaCl 11.7 Units/kg/hr (11/21/20 0855)PRN Meds:.acetaminophen, atropine sulfate, heparin (porcine)Allergies:Patient has no known drug allergies.Family History:Family HistoryProblem Relation Age of Onset Coronary artery disease FatherSocial History:Social HistoryTobacco Use Smoking status: Former SmokerSubstance Use Topics Alcohol use: Not Currently Drug use: NeverROS:Constitutional-No fevers chills, sweats or weight loss;HEENT-No epistaxis or vertigo, no change in hearing or vision;Cardiac-See HPI;Pulmonary-No hemoptysis, no cough;GI-No change in bowel habits, no blood in stool;-No dysuria or hematuria;Hematologic-No bleeding diathesis;Skin-no rashes;Musculoskeletal-No arthritic pain or joint swelling;Neuro-No headache, LOC or seizures.Physical Exam:Body mass index is 35.37 kg/m .Temp: [97.6 F-98.1 F] 98.1 FHeart Rate: [59-71] 71Resp: [16-24] 18BP: (111-124)/(58-72) 124/58Weight: (!) 115 kg (253 lb 9.6 oz)I/O last 3 completed shifts:In: -Out: 100 [Urine:100] General Pleasant, comfortable HEENT Eyes no conjunctival pallor or icterus. Mouth is moist, normal mucousmembranes. Negative JVD, no thyromegaly or lymphadenopathy Chest Non-tender to palpation Respiratory Lungs clear to auscultation, no rales or wheezing, no use ofaccessory muscle noted with breathing CVS Regular rhythm, normal S1and S2, No murmur, no clicks, or gall ops.Carotids normal upstroke, no bruits.Abdominal aorta is normal size. No abdominal bruits.Peripheral pulses are 2+and equal bilaterally in all extremities. GI Soft, non-tender, non-distended, no palpable HSM, bowel sounds arepresent. Musculoskeletal quadriplegic Neuro Alert, orientedx3, quadriplegic Derm No rashes, or ulcers Extremities Mild edema, no significant varicosity.Labs, Imaging, and other Diagnostics:Diagnostic tests reviewed for today's visit:Results from last 7 daysLab Units 11/20/2121WBC 10*3/uL 5.3 5.6HEMOGLOBIN g/dL 12.6* 13.6HEMATOCRIT % 37.9* 41.0PLATELETS 10*3/uL 138* 147*Recent Labs 11/21/2105NA 139 140K 3.7 4.0CL 106 107CO2 29 25ANIONGAP 4* 8GLU 137* 147*BUN 9 10CREATININE 0.65* 0.55*GFRAA >60 >60GFRNONAA >60 >60CALCIUM 8.9 8.4ALKPHOS 98 --ALT 21 --AST 15 --ALBUMIN 3.3 --Results from last 7 daysLab Units 11/20/2121TROPONIN I ng/mL 0.25* 0.61*NT-pro BNPDate Value Ref Range Ihujcd1411/20/2020 542 (H) 0 - 125 pg/mL FinalEKG: Normal sinus rhythm and sinus arrhythmiaCXR: No active pulmonary disease.Echocardiogram: PendingDiscussed with the primary teamTthank you for providing an opportunity to participate in this patient care. Ifyou have any question please do not hesitate to call us back.Signature: Genesis Porras MD, FACCDate: November 21, 2020Time: 11:40 AMThis document or parts of this document, were dictated using re3Dware. A reasonable attempt at proofreading has been made to minimize errors.Please call with any questions or corrections Name Value Range Interpretation Code Description Data Amina rce(s) Supporting Document(s) ID Date Data Source [id number] 11/21/2020 12:23:52 PM EDT [facility] Name Value Range Interpretation Code Description Data Amina rce(s) Supporting Document(s) POC NOVA GLU 138 mg/dL (70-99) H [facility] [place] [facility] CLINICAL STAFF ID Date Data Source [id number] 11/21/2020 11:50:[address] [facility] Name Value Range Interpretation Code Description Data Amina rce(s) Supporting Document(s) &PDF [facility] UQNZTn3jFwZFEvLq30/FTRlmBNXap4XzBQolPHc0NCnrIRBiM5LcxJrbTALEOZ9DKH1kVe7QLPZGBC6e oRX [file] AgICAgICAgICAgICAgICAgICAgICAgICAgICAgICAg JEXeZKQiERItSPYmKDFkRIEtICNiWA9WBLHyIMDpFVKdQTGuJNCdAPIuENEyCDJqRPHqBPMeNORbNYZt ICAgICAgICAgICAgICAgICAgICAgICAgICAgICAgICAgICAgICAgICAgICAgICAgICAgICAgICAgICAg HXZgUS5KZHBwUNNeRZKoMKKnSPNrDYAnVZBgUGCzOA AgICAgICAgICAgICAgICAgICAgICAgICAgICAgICAgICAgICAgICAgICAgICAgICAgICAgICAgICAgIC XsLBYiNBCoRYKtYBNsEE0HDWUcSHPiVLAzQYKrAGSxUXVyCGQfYGOrHWZcEFGsKQSrZECaNSQzHCBsPK AgICAgICAgICAgICAgICAgICAgICAgICAgICAgICAg GQPcJQMeNYBfFHUzWLBrRTJeQRUmDLTsSC7EXJIgZDLoNBSjQMLdSZXaVUClWBRtIWDcFYMoJEEyEMHa ICAgICAgICAgICAgICAgICAgICAgICAgICAgICAgICAgICAgICAgICAgICAgICAgICAgICAgICAgICAg JSPqDVAeSO1BJEKxTWSzSAMiUMAtJJGwRKIdPZCzMP AgICAgICAgICAgICAgICAgICAgICAgICAgICAgICAgICAgICAgICAgICAgICAgICAgICAgICAgICAgIC NdPESuZLGxVKLjXEGjLNCmCI4GJAKhODZwXGWkPWVkBULmAVOkYOUfKBDcLROmTDPwSKIkFMZxEFFxLW AgICAgICAgICAgICAgICAgICAgICAgICAgICAgICAg ILHrGQLvMVVaZPMfYQDnULTfTYSkZCNpVAQcBI1YZEEkUGBvLVMdMMIeGYCuUDCgIHQoPGDzNDIkEKOy ICAgICAgICAgICAgICAgICAgICAgICAgICAgICAgICAgICAgICAgICAgICAgICAgICAgICAgICAgICAg GONnJGOiCSIzVC0UJGGsVZJhIWHvUNGsWTOyUBGvXY AgICAgICAgICAgICAgICAgICAgICAgICAgICAgICAgICAgICAgICAgICAgICAgICAgICAgICAgICAgIC XdMSJrCYFfQIJlXOInRAOvUVDnDM8YIEQdGPAaKHJlKYHuFLIgWPRqDINgXBNtQFIdOJKkFAXdLEIpFW AgICAgICAgICAgICAgICAgICAgICAgICAgICAgICAg QKHaWGWdHMZkTDTcGNQxLMWsHFEbEEKtZKBvINPnTF8VKG52wLLru1W7LNUeUH9jbbb/Vj1QOUwnoyKw qEZrCC1JFjCvRU8gbq8KObNnFI2ulj1KTMnFVhNkO2V2lMRaDKZvYTCSYgCxQ34zPQzvDy24KVuyNUVo PtJrLZt6Yg6ILxDcR9npFEMyDaL8CZFlUgH7NQKpVs G7KHDzJiCfVSmrRX4Ml7GdxNQlYGh+Bv8YAN9mb4VzHFjoLrXcAQ5xwr0IPXmDDhZwY4L2sBSvL2X9CW fpSw8XWQYnYAXyGtDfHWLIZBpiTP7AFS5vttY9TR4SoEFzRCYtQBLzaRXpNNh6N62ngPUgNDvqBY2EFR A+Asmita+Wk2ZNTDoARHhBZKrSoNmGABCQjTlQ79xeZRt SPZuZHI2OQWxSf0XXXEnM1NjhaSqeQplelJbFSPuBFDPPC7BWHmfgjMvjQVfaRieGJ20vPboWB8WBb8M HrCjYA7sbo4DaKSxSi1CVPGuPY5IYQCaJERoPYLrGQX3PPYoQmFyOFssKPWgPIRuTDE1QQCxHRArGD2Z OtWfVHDqSsTuNXKzMIRtZCQoiz7VBLTzODU5IWKiBH MgYXQsGJWxJZlhJMHsZGYcMGkcYKJyJMHoUC8SUkRhXEKxBKX9IUrfIZEwALKguz7MAKFxCGKcOki4Ba SzIKCkTHXfIXnnBRDySPQ9ODG3YFRlLYOaMH4QJdCwKHMmZKSeNZTxYIFkQLKsfo0VPULjMRYsXro0Ga ToTOBlPPBhZPcoXSLaRQC8EUI0ALNkDUNlXA1HJaFy RGZmUAsnZLPhHFOqCGCrjj7KWMLiIULhUWWyIkXtCJWoOVLrQLdqGQOaKYZ9NEp5ZHOaXHVaAZ6JFyFu RUMqERn3JVUaTCScSSMgnu3APLMtVHXwMTK7NfMjQWLoKZUoDOqhYZXrYYC0EMF5GDNoTMNeDH2LMgUh LUJyZDC7TMRjNVYmNMYtoc9DHRZwTLAdNONnGPVfZH PoYIGtWIegVLQyHMRlWEx2MTLnIEIzAS3HQwCgNKAnUHQeGUVbPGPyJKEand3VRJJtMGEcUKRmDIWmOO VeGTCxYKsoGZUeYTHiIYV3FOTtNQIdMZ7ARhOpHOAgPaX9TYpqUWTgCPYdom9KMBUfVCFwXzTjKwUpKA IbGDXwKKhmHAKnAUC7EXq0COOvUHQpFT7IQbAkEFIm PeJ9AoQfRYFmJKGyjf4EVQJzMVSoCQZdEwUyMIXwVRNrTOvgDTLlWTY5OEDhQPMjJEGwSN8IEvBfXRGo TEDzGsViHAMpNPSaei1PVTMhOOA4BEoiAxXgFXEwFXKjFBqeHXVlWRC6TWX1BGXkQWPiAX9YVrTjZRZl DBOnHckuRRQwKBSwiy7BYTOsSAD4BJm7LfClNATeII OuTLzrABVoKCQ0QmU4NMLqBYRtUU0PCdRvXWKzXiOoNEGdYUKzHILzcn3JGUMnZMA2Lde9VRMmNLKdJL GyWZbgSHZtWMC5DXUmLLQjPLSqRW8XAbIrLLknUNQFMol5UNwaM1a1FAHaTM3EA4Zyt9GjJntjJZLCVR uyLK3tshAqKOKqFn0XR4dQVpupGGY8ODf7MAD2BeYs KfMuGPmoRsH4Wag8YAfrJhprFF8dFCYxDmN6Bcc2MOAnJ9YhACX7KVS4BNxiCzT7PBMfAQN1WsRsPA7J Ve8TWmY7EYW6yTRrDd5PHeE2QGiYFdTkBW6FPMv= ID Date Data Source [id number] 11/24/2020 08:31:52 AM EDT [facility] Name Value Range Interpretation Code Description Data Amina rce(s) Supporting Document(s) POC NOVA GLU 146 mg/dL (70-99) H [facility] [place] [facility]AFF ID Date Data Source [id number] 11/21/2020 08:18:10 AM EDT [facility] Name Value Range Interpretation Code Description Data Amina rce(s) Supporting Document(s) APTT 53.3 s (22.0-34.3) H [facility] ID Date Data Source [id number] 11/21/2020 07:49:17 AM EDT [facility] Name Value Range Interpretation Code Description Data Amina rce(s) Supporting Document(s) TROPONIN I 0.25 ng/mL (<0.05) H [facility] Less than 0.05: Myocardial injury unlike lyGreater than or equal to 0.05: Highly suggestive of myocardial injuryCorrelation with rise and/or fall ofserial troponins, clinical symptomsand ECG changes is necessary. ID Date Data Source [id number] 11/21/2020 07:49:17 AM EDT [facility] Name Value Range Interpretation Code Description Data Amina rce(s) Supporting Document(s) SODIUM 140 mmol/L (136-145) [facility] POTASSIUM 4.0 mmol/L (3.6-5.2) [facility] CHLORIDE 107 mmol/L (100-108) [facility] CO2 25 mmol/L (22-31) [facility] ANION GAP 8 mmol/L (7-16) [facility] UREA NITROGEN 10 mg/dL (7-24) [facility] CREATININE 0.55 mg/dL (0.80-1.30) L [facility] BUN/CREAT RATIO 18.2 RATIO (10.0-20.0) [facility] GLUCOSE 147 mg/dL (70-99) H [facility] CALCIUM 8.4 mg/dL (8.4-10.2) [facility] GFR >60 ml/min/1.73m2 (>59) [facility] GFR ( AMER) >60 ml/min/1.73m2 (>59) [facility] GFR INTERPRETATION [facility] --NORMAL KIDNEY FUNCTION OR MILD DISEASE - GFR >OR= 60CHRONIC KIDNEY DISEASE - GFR 15 - 59RENAL FAILURE - GFR <15 Est. GFR calculation based on the MDRDstudy equation, which assumes a steadystate for creatinine. Est. GFR should notbe used for medication dosing. ID Date Data Source [id number] 11/21/2020 07:33:46 AM EDT [facility] Name Value Range Interpretation Code Description Data Amina rce(s) Supporting Document(s) WBC 5.3 10*3/uL (4.1-11.0) [facility] RBC 4.15 10*6/uL (4.60-6.10) L [facility] HGB 12.6 g/dL (13.5-18.0) L [facility] HCT 37.9 % (41.0-53.0) L [facility] MCV 91.5 fL (80.0-95.0) [facility] MCH 30.3 pg (27.0-32.0) [facility] MCHC 33.1 g/dL (32.0-36.0) [facility] RDW 13.5 % (10.5-14.5) [facility] PLT 138 10*3/uL (150-450) L [facility] MPV 8.6 fL (7.1-10.7) [facility] ID Date Data Source [id number] 11/21/2020 05:40:[address] [facility] Name Value Range Interpretation Code Description Data Amina rce(s) Supporting Document(s) EKG [facility] ONQZZf0oYiWKAsFio1VyDtJiZTXiQK3vncb2X6S5nGCrS2RuwROii1iaQ3WnB5PuWJCoXOPGAK2AtOOh jb2 [file] fzpgFE9Ux9VvRk1S6YKCe8JmH9/j3mWe6ES2at3edW/b/fFgI12WyKx90h8BczcYIn+0V/X/shoemaker/e3r wB6jzOv2sZBCv6mwRde4F/TuyBfZ06B4VsuY1q+7cVXuo3j0v+ol/1vVJ0h5/e34lmKfuUj++NftPfB/ 21htbgwBkK9P7ZT2XAd0h1p08/Z+hNM96Q768+/huv 5AbXuv1S/Rxuk61XoY+uM90LFrMplH/+rkP97lpFd/ugZDtzfnf+pr/x4W48lnRzs2cuCZ1y3VA0VePB fi/6+7t2cbbqig8WIJdfz83rq/3xJjso/hz2Qvm63MRH83WC5FuUQlbGEq1t3yLyC0mO8/f+7atd9nD7 3HS9zB7/+5eJHSOS7/iS2uhH1i/5j8Bcel/Keja1+/ ZfX7R+E1/h7/7GdfFV/C66tzpIL7dDLy/3q+fiK/TT+qvHnn2+2Qy+35O+p/CpsGVYKRnIMC35Ki+8/e imMajxXnxVZQ/V//ajm8Lg+7s/O2bPPt/9ALTPN4/N05wbgp+ybOKrfMOf+UfFSwi8b+m71ptKEPilps v95nE/vOGJr+kNPCYb1X//3D1al992eHTbtO7DsDL0 18jwV0agkt/q96v/9Ff/pfPPncyEGt2c71039gfXx+jvb/+8OEbZu78bk185pz8n5w/W115pbmPs492u v/ORJ75K+RO+fdw53mAbz/TvtN6GX2Mytw/yDR346PV5KsVT/K686As98PMirss4L3YZbIn1YyCXjPTs nfoZVH+7xE60wEthVapPJf068xdj9+Kr+vt46+LiK6 lFySAA2tasz8UvIGPj2Gmn9MLnDQi2C29vRQSZq7NQja/PC8jlE4/rnvtjEzJepGwUKlJ81XP76t7aX/ ymv7/n5v8j0CBmOomySEGs243+qoI7nq0WewjW7urK5DC+3ak/oc1O5ma5/+fgKO7NXwjZVnCH8jIR52 0zuz3GZ4hBUB4/+sLwb0LO3j4zGQbpDw3K6/1if/bq 9dOIZd96Lb01c9x85K+DE67jis0WHh9B+a1GF3pqLqmHDRm1sXF7ljq59kb4bITJCLehYbFF9AyK//Pn 3OPc9/zhw71Edjy43slf933z0F9/cP3p56BX4P7F51/11UIZnAqrk3/3V/2fvY4Bur/n3/j8V/8yV0DN S+Krid/mdn4Q0327hM00ce/p78+hO5qrqa17F+9F4q t8+6vw3RY2dqbgLzmR8/Ev3bg7I7V8n2G+//BkpP/q+nwi/VcLv9+6MZ7C4v22H9tcevcZErdTVJ7S2f 49p2dK77SUpYcfgEpBcSW2sD0GJ7YJ1/JFjB82GHki5+KphAB2b3+lP+mw7pzwi69L188uBEFCF96C9q UyLYChrZO1Te+e+Dn/evp of products & co founder/8jfQ5/Rj87E3lAzk92UAz dWZ21R3Zfdp50YY/+51/Yz//ZOxB30/6O63f/i24Mp0p2lJeGg16Xh68qT/jTXyFPrzz/h7zD2Nt/c3L Uow4wS0Px1t+/htqTG2BcQ4pcbvD2a0Cqq+y/5k8x6ml5Ntk8P927nH1V3Zr/Sa+Ql4BWr+Hxnto/Sa+ Sv2/+Yft4LY1TO/t+74aTthd18d+P2X/HvP/KdrI33 9/3z0f3//Gu3d+/xvvjnxt/lgzrm6irGXf291/iyyu60pcEs1b/r/NP1/n/wNUdY2t5NTH+XEDkK5HYH jiN+TAq//gmAa905NAnvlRugylcqMY+2/I6aa+j/uvBtln40ywQ5QIEWAG/Pfh/gj9wncb42b6E2irfG MofR/d2pIieETodYtMSlpt7borDMnvNJESZxzb9nnJ vwPHD7m+JeGXx0lNu/pEfEqU7/ShXflMH/EyK21zoWogS2HIU/wXkIug7ZHV0CDC6ee9yX5o0l/ired8 harbour master+Sf2pcWqB6ba02+iSQ7/YtL7BzQigXv/Cj71assJK/CaQPGmkfXOahkXyO/42nv/NEPsZ/FTXtQV4r [file] wnrjlWkofyF+Tx8lW6p4+0MY/3Y1pj0yzOh421o+bm2EogwJ86dryP/dcPXPGh/Lukas+Rf6J8Q/lW+7/4 cyoD5PJ/leU4yt+I38h/OmPwZaBp1rw+Sv0j/bj4Jp6hy0Dv5mWtVP5MT/xGB3/YicqOMr0a67Y0vB9v /MJ/ZoC2rYFDh5u975C96grPio6PnFa/snpSh9r3xa x1H+y7+Mm+i5/oiU6fErIL/BOSm610a6tlhB+q/4Wl6x0stsC/6bD2f2xYlwOE8gt5+CuVeTC+4q+0V4 i/6uzBptazCiRZ2O9Uf6BwFVfL/BuonxzhtU9k3OruZGePd+Q5/HJ7R0k9wxRl+Ty+ui+Mr+bz+Gp8w7 zihQfiB+Cm3fped0QHgKUNd0sUf9D3H+G0Q0fm7Vz3 r/b3suKn3M2Xx6KhQic9kqafw+RXmb/kOWFKkfvAkPwq+RWL7ujIs0njrCYnXk9aurHrq6Q/kLS20g7R c/rZ6W9ai4k62FyL8IG7Cx/St/9GmXana20pUlxHGDA+8bqvdte2dTWbo8qb/Wp0jG+v/ZoVzxExw0J/ 9zp/h+SGcpqvEoVgy2YB2q27PlX4LXlD9PaNnRlhJA V+w5Uk98EcYuL46MDSOzcdi+4Tg0hSTm1Rf0Xejqt11xzaR3J+oAv7JtD/rPqplJeOCaZkt1m6GA/1wr /26VmAZpAVAvKCYf4Ovdl5as/wV/mv4K+bonTh6rHGWZwg/NX91hC/clwbBrkdBPs50G/HrPtgWEAkzx wILIgkge6I4e7T/RKwBSM72JdmTZLu7tAS1wFn1+wK /+XBsd7bo6logweUy5/FpzJ/8quu+pN6pdnVWq8dVi+QD74C15ol/w1J3jxnuOuzpr5Qj9/9V85R+ftX Tub/csw21tzza2kR18obd33mOlCG/urEXTVMHfL+NSS/Kd9EmaW4cL+uEgfif3GgmL1y1D/EXwV/HiYO KeMa4q+Y0a8xyKcrPCfwhcO5JH5gn8eu2g2h3+KvtG Yd+6TaJ2xGem/K+SN02E1aH8Y8YyL/yvkp/fiSaNVu7I9umNarwI86JU6nv587Bn2fuKh1u/jf0vfPsg X+3bxrO7K+grR3kibPL/BMTZ1EG/1oqK2eEr90GcmX4oTlvf5U/ureBNq4UU8wir+5o6b9Kfx6RzlXK8 2N9oq/Ut1O3Y/CCSg2ODctGs0ulY7noAali6ym39Fm Sj45xF/wPWNa2Kvuy3O2MgzvfupD5cX/GuCvxin+vP52D9gko0JpqF/ug/NriO+Fl2pzvR/Nr9bv/Gr9 zm8i/9tadP6BpOi31muF/ehRsj91B0h/siY49mhbXvUKIF1SX0XXO7bMg9D+MCW/Uo9nl7GDsTb5Wlvh dU2EvuIXEH46mSvlClPQ5axkZuhkfVTUS7fkiZryQN 08eMUKS7846YpeqsIbq86tkBFkx11l0CighVgikF7hXLOaV2MwU6aFC5bArjNcj/IV67HhkCJvwYin6B nIH/P24EEL1mYaV9Vik669tfhYJ1WEhg+pHMd/N+I38p/pE1qewXatC9sjsMb4bt/H2bDfii+Cv8o+D/ 5KMs8p+ACEWqQvo7CT0BeqOt3S4hBSbfJ3DMzE9RjV /GQNEz4Fzs6Zr0ZxV/VWlhKgk5P/gqkjLeg4cNkukRl7b5ugO7dG13jbN/Icjw2lCZeZHE73xgm/neKv 8tv1+WM3YxA87xpqa7R/8N/an6fV/WxQoqO1qLs+K54av3Unaj/BAzMQeqh0lPm789W4Km2W/Cr/ZajP QseF4AAtN1bgfT79fvQ/Serbian/2rjp/J+RXU/KrG67+Xx 90R7mMrN/yjZ0CV69I59I92z58x+G/C/EL/3XUxxG/kX+mDwf0QEIg1a2uLRC7cjmfjPs/FLORIST MANAGER/0rhLfn MJ0J0EeZb4jreapQJYB0eC+TvmSE032js92J5Hn28wmOOYrxSRW45qCv3PpUk02oG6HhwuZu4q9zd8Rv +Zu95/58T5qrls8Du2gRVM2m8N2565yzfslR0e+KuZ /ZBWMj2X1v5308G15W/lmRsMizVL5xwvobjr69L/TnO4bY6z/qN9wXB1wXQ8aDP1bTa/yvgaX/uqvQb5 oR78fhM5yHy/aV+tX/vNqls4gh2jl+srpnz8Pf+zr+YN6w9QF1B41aC+fxRf9/8L0L6o1dV/+pS/xtck n3j2W070M9h4wyhzkmEhsD7Vjd0QCn1ASm0z6U+s1X b1DyNqzIS+Be1mc4xdM0bey609/rtR/kH9a7+oCsdtcfVP0iucHrknweZ8L2mjiue0xjxZ+BD7vGsL+r VuiK/92SS/vru5V2ifGcoqqnRJ8K+tH+Cr89aA9hBi0CoQ7kmOZzqm9mgmIB+1MZB/oJxZ/y7zdy7i/F udCUzd1La7UqHF8sN9gr1nGr3dhg+sAWn8s6R/YZJf ZTju+2N68tx4ge6p84i5eh/Jb4emz3wouX/8lU2Mr/ir/XwCrda2sPg/4stwtidOeVOgwZEvEoZmYG2C W59XfoYi1GxkvI/LCe7BPmoYM4GQxBj9clnG15LxE36eHKCNI9ol1DwTkoB/Ox6JdCiGzl9hIZU/evp of products & co founder/g s5H0ZlSTEhf+zUcc2U3KFoC52dJAEL9X63mEf6cmk+ lfq/TNQq8+0HvxUv1gcLJeC8EotN/sAQSctxrc45/tdmw7chFaD76aN8Wtes6pjw+pTLQ3+Qf8k9cqoz 5DQ5c+7wsm/iq/dsF5EpdoI/ZBOuNgO3cemOP+7gsm/kg80eCCQdr2VL9PiD+CM0wwXO+JQdrp3NQfhG +QX5lj/Gg7gzvmBm0ep2xbeaLvtjy4hDO+ZXgfNOhf kca3xma28X2X+FFDl3J6elU/7Tei7Gn7D4nxuT1pnddX3morwO+IP/XfU+0mczn9cA0OnLfKZhZIdoE+ 0L+Parsons/ykgb+yg/YBb3HA9qCkA1TTsq/+9F4542X22mzIA+/gLv3bbr0s1Z6K+KsF/wr09L6l7r2S5QQW rW+g/Dp/B37XW82G73s33RN06OxJyrh+Y0l+leH91t 11fz1r4Lueb/oWkdQWEfc84UL23P4IdrB3zO/+IouRGl651ZwLPxmTm/eXtcJfy6YxZdyF/Kbtu8knDT 37a2M4zXs5PwfC3hgBKeExpoHL7itKAmVBRQ3lThhu5qykmo/KcoK/ut/2+m/gH5S2ScxpWQlTH60O/+ I1lyS/6hlG/oX8C/kd+kU2vzwbc2ikc2G7hFEvHI3e +CG4faJEjuO234G5GvJA+9GS/OpkGPlDfnXDKH/Wf4O/kdfT3q4jG/p1ii/0qoKCz96J6ZsskfF/Rvkl u8gFX0TwCJ2nRwgzcP+2gr/Kfg7+AeB0PvYNYSS3Ns2RZ3axbiX/kpxtzdKfXHO+92HZpM0MCsD/9cLI C17masDr/s+Sb6xZ9/835r94xM+fb2Zdob/VN1vErO +aRRpIN5RrzvtjX6nt/rsM+uO8g6sQ+hnhUf6wK8rN1CN/usncZIb8y500t8K5QtseZUr2W3bu67B52e 44dnvqcQJvqMUAG5ln9u4up+5Lpu2cZ3M/6F8tyK/WDhCA8piN99I50L3Uxpc8cvn8axk5k2L0lL/99u V1/n7daeZO/2pB/2pB/2iOkrA8vEiED8ccq3W4Kx2I g9N8DXSI3KD/Tb4ajoZ+5FcL+qxIX13oyC3/n0q2yk39F1ik5KN+4ih135+35uen725/bZy/u+STa0+U X/bE5oc5wMy28VJlvD8xy0m32Wrf8PsoigIx2mbJnqf+pi40CznBl+Rr92R4u+Q5C/KrBfnVOmgv+Kt1 NUFX3cXPHoajhPjC/RvzlNIZQofg2hw87WNm/Ct+0r +67/tX4+uQXznkV/7V+nXwVy7+amX47Z/+QuUJd2DNG1ZrtW+eCPuHMMrZ+A4Ni79HHbH7lgk9T7jrW6 oj+hRO4Bq4Cf8gi2X/i0pq9Gv5n7fU+Mq9etTG7Uw8g6p77Bn8ZaLTz/9gB31dmP71ln8L/83v48zdyj 70Wk7U7GUbnrg7hDpqM8za+rB5olbVy/HgryQ/8S59 md3ysvfjp8ZALvazTj49aOD+3gXb9Y0cDF/+VzeUHxbP0xV+Sp7j0L/tYxG7Mkf/0oOfLo17YK53/voo eawPQ/6S5/fsuwkUpScZf3yg60M/yraU/MrHQTmnypl1//VP7duihK/7xPqdmM+zzl+X/QccQAGX2aQD VCnY7BMu/iruAi7+Sn0e/JX4Og/+Sjy/t11vAufziA 1JzbRaWzs6HjJHxjFNm6k39Qw1dedNqsK3yTVhmyThTH9I+2QqHpvtF1jN8XB/aoSMyEP/xnJ4xZV/lf rs62wp4M+BUlBNg0Hl9mY6lI+JX/PgjxAamadIBlbCUjiI107r+8HMU/jZB643l0+/woTAVf3fk+mr7K 354hto4Q79HY/G+6AvzGfYD/cRdeZX8nK+V72H+sL6 BYKX2PX9vHe+2usdmc57T/oI4MUhjg/8LDxCF8Wgtit14l+X/BH2tUVlMz/SxsXPQbhY1ckpz/QJ3Uuf 0N2Rv/XsSpTb87EIncjdVpAGBajUg/xjHVhf8U7E0Y0yW+uL0fl3R//shah/jD78W0iY+u+1Lmom8zxJ/6 duTfyI/zCPyV7+In/bU4PdGn3kIg/MIyL7kfCykf2k G9ML5NmbMR2f7+wG/FlpKpFkobb6F2Bcmk+cH6PWX/7vfi86L7k1Blheg4g/W7g7/S3XN/Zf+7P+kjKd xf+qmusmEv7uVta2rEL41LG+24L2T92bgaCxcHSDDgYSb54vzo2ea4T+9lS/8q9rct/aut+LGz8D0j+7 uVfdmW/TEVcI72yes7KJsMxwOzeG8fqs2mrxPoylp6 rH8nAIHrR6CyfEpjOsregqlBC0kb7JD7v+QP+IhG8X90DWDYsbZT/0p5YD+5m7liZdyEr/SvNAdS/yrD VX4fyD+Q/5jf6Judzr/xq8g5gqo5lyVU/yraJfmV+qeXvtlO+1KG8WhPnn/Sd9NqNU9yi+xBE3ciEjp+ 7HBkOp7gu52K59DHMahP/aDm/am45Gf39L4P4eYpoP yrT7wB62q9A0eEd6X/0Uf4EGnYZuV/2vDPsGfJc/YsfZUN/lx2TjMY+++edV/YsB/csB/ccyL/RDmG8g 12G0xQqV/I78i/Eb+R/6BddV/YVvvztg/xpY+0reQ5G/sU10WpNjcrdMVkS43YDtHY20NxP/p9Oe8Ww4 2O8uv+i81qBh50vzaq0CyEq1O717C95Kk5wqlevd31 tP057Mc32U2z23T2xU/tVe/dG/7EBbsqKvfRHzyNEf3rvScny8N/tWE/iXlEG7lTpMT70Rm1js2XyrKR /EURcomi0M3oemqxa1yL++CG/FiDc3Isvi/H7aYa9K26Y4sR2SS/bl12MsoDyybTpqszlC6nlD/70d7F T+6b2w02J+IxvuKvVoZrXLah/WmJtthC0k76hg9sY4 rfKAfjuw/f6g10kZ+1D/Yr6F/tg/aNz3hW34vdUpfIQ+1T+wv7yJ7QRtD/3QftPZjPsB/cB+2F/eA+Zb +qB51H1ry0/hZ/FXnOV/oMB++V56i0rX4G695xlpj8yO+dbyD/HZe4Syut6kLs9S+dz5C/2vqvG4v4/L xI21nn6ItoEfg/0N9p7Rp+gklepNbz6E5Fz/fQ00q+ mQxWm95uB/ja5Iu6F35ty9AuqBaGz20pW3rp5B2rk6JfA6kqwsie4Nzwgp6aJM0xFmp+ym09S29q400t N+TH+MJ+4WR1C89A5i15l0/sJmbJ9MO+QrBx5WkC/jJnfT06sb42Z+wHD+RXB/Kr0+v+c0clh54mv+cz NqMo0hsUQ/jXEYCjAa75J+2F/sAJfihAcsfp87m5Qx T6YHmSgY+lUlhsCM25LdxbrDgEWcEuE+Yz+KsD/scAbeGw0q8jHpXu+xtlpxs5sEZtV+StkhLybt3qid 57cgSn2Bmt7yMlhY+Yz9C/DjwvQtts4Ycee/49TDocxv6sxd67q8P8aNAAu5l342EG9cm+i/zusK4mnI RbtoN13emafq10vL7qwaD/WnMlx6iXD15FreWuJ40Z P5+F/WqVvtkJ/ur+S/LsrC5qwZ4ezXzWypsO6OO/s6UicwgSh1O+4Qn+KuvjX+2Tsh+Me/SR/Jordi/+JN eUK/Lu7UR/wEiwVUil4S/eCB/OpAfnUc+7MbysF+Jr5f6unXbU/QMQ0x1x0apZ483im+KplPp4P/EeHg d1AxJZGi0G69ex89HU76L/4qDOt/3z2zaxfND/3tX9 GuH3+ElycIXnwt1m/tb4uT1rddP+hm6dr8l8Bz7uk//ajWT1459LNPo66xO+vp3/S1a2234vejUf/+an nA1326z60345j0zm58fC/pPntO+SP45D56YsfQLdK/iW2Hch5jY4YVQKn6e4/4q8yP/Yerr8C6nZD/DO fg/E61zsPM0qzQ/xfQzEt0rR2K8Vq/wRqptQSsa1L4 X7dhHvpwA4u1/OL1UL1QK6c/iFKz+mI7Qyfch4EbeMZfAfMZaPkchbISAfcpMecdX/5SNEU5nUR0ZFc8 g4+5f40QJrjX+E9r+QE5RtvdLaZ3S+A/bXwk+J/D9rI7xvlcRFgAacC4uW2BK7Nlw0FGBrWd91eBU252 0A76rX/ot/3njg9pXNeq/Tdx5w2II2ZJpsfBYkrfWc H+KQG9yZx+iFJC/WEoUqfOzZs3hJpL1tI1S/pGTMm8oZ29HtmVuTy5Miaus4DkwwrC9SX5D6uG/UfUFe eYKJc2VzenA7Fz3sWv3/JHrLeh/UfQ9zxJO7IpsOlszuTtBjcC2WMD7jukNCzInXef+yPa2xp/hIHoTO qXHgL8h1HkGRnlkG6ljCstHS+QHerg7kqN9QTiDFJF hneW5AVpi6Ari/4jNr/Z/JxQuZbv1SVlD/p8AKVG7q5nEoQ1EwAxE4A/VBxQWFS4pUUBFqwzuS0oKdti 8/6X0Dn2YjbuPOjoqGmmfAzQiXPMvI/t1BbTkGYnO/KhtRYkrD2rM98R+UeUct+QZKMtz589GLNm4iWH /eaXli1CWruwOhcMYBczPxnPS6lYTVtA5U3o+CM2Zu La/FLgszbD3WjmiobcR0qAY5PrSu+ULveLCAL9Ddh/Hcjs0hi6of6NeOe47f/p5yU4/REszfkfZwqcY3 1Itx1S5Zx9N0Wa3VSZ/BGoAVTEfoRVRTfPBXiR+CPqGvcjmMI+2PWy9/Ma/iXuNqor1oqNEh4wrlE7+A 0Hzt/shZT9MQSZbdSsM1T+OzwbD/mhcBIqz0z5ibNV p4Yf9Tf3q/Guv0O2rrC+Yj5C7PKpgoVJktlXDt5S5QwTGfVso/fi1oDCEUtBwRwtfilR+W+DNllrUCf7 ESytLvQ/elWxo6yl7LlHqkJ/omZI+0VE0xi4OsFf8iv8tc1N6/T/4Gzv3eGsuWkoDastKeTZigRajWV1 UL0FDjlexHoeciMqQqCt/dEjqoa4siKlT4hxC+WrPo c+ndV/edcezPNn50StvHFioLyVBn4qcbu5C5ARN9v3G7wfZuCq3Tbkk4gO4jZxhHtlL12vwZ81bT9/q7 EUK0nalpbGFC/mdIol0AwF++dxek9innomD0/UMPmGDKzuTE5M295CxnkdulStsbbdzg1mKPg6mTRNKO M6kFT3wqGfIeIiqM4k9JfCGeaK0HmgA520F6Ez+5vC Odf3C0Zn+4waJ9OsPVcY7qSriVsKvr7vP2UO8kzRRxlQI0GpcYVTp7zsVu4D85N9N0McKVae79RA0afz vn3lA3hTlerH82Qve92BgSJR/CrS80RbaMWYdQ1wThHR6Pkg0Iv1k4lQ6jej8P/bnbXEjJU9TMTt2AiO ONSjhI7eHi4MyqEG+7KhgjNob1iG+V9diZD9tFN/kD t1414PBDRYQqAPMILm0AszN6mTkdSYmU17a8j948NxEVT9hLEVtK/I1oQ36cK4/y4RZbS7o0ZSk4k5zX fDEzNFUfK2OzMH0azNYnKgkS77ttn5sLgphF4KqoWobmmeY+MeGAUYFLTrMV+N21wLm+hX1qukS+vGc2 FzHmyejbDcbOk6//2PnKWTG9O0GqeXhUETF6ex6YXy IF3o50/IHT1PWrcjfMiwtXepN/1LLMzEw/6eIBrsqA610jJ9pZ6OdWoeEi3Aqwcb61jTh/qJCPNhLaRP /rfp writer+cppZJNX/ZRKya3+W7Pv2HaO84ngj/ovm/Ox231KimwPguvzC45LZG/scKDR+cyu79iu2B/oHvAH [file] cdbPVbbLzfKSJZSAA3WVq3VlBfPS6R ID Date Data Source [id number] 11/21/2020 02:24:04 AM EDT [facility] NT INFORMATIONPatient MRN Name Date of Age Gend*PT [id number] Ian Pham 1945 74 years M IPPT Location Admission Date/Time Visit ID Attending [id number] 11/20/202120 --- Kasey Hardin MD([id number]) EPI ID CSN Admitting Provider [id number] Helen Hidalgo MD([id number]) Attestation signed by Helen Hidalgo MD at 11/21/2020 2:24 AMPlan of care discussed. Agree with H&P by Bro Blanco NP.Signature: QUETA Mittalate: November 21, 2020Time: 2:24 AM Inpatient History & PhysicalRobert BraxtonMRN: [id number] and Plan:Principal Problem: NSTEMI (non-ST elevated myocardial infarction)Active Problems: Chest pain Quadriplegia DM (diabetes mellitus) Colostomy in place Chronic indwelling Pierre catheter1.Chest Pressure/NSTEMI?-Troponin 0.23 at [facility]. Continue to trend-EKG shows SR HR 61-CXR from [facility] shows chronic bibasilar changes. No focal consolidation oreffusion.-Pt developed midsternal chest pressure while eating lunch today. Family becameconcerned and called EMS. EMS gave pt 324 mg ASA and pt's pain resolved beforehe arrived to [facility]. Pt was found to have mild troponin elevationand was loaded with Plavix and started on a Heparin gtt.-Pt currently denies chest pain and all associated symptoms.- Continue heparin [id number] for possible intervention-Will need cardiology consult in the morningDM2-A1C ordered-Frail sliding scale insulin ordered. May need adjustmentChronic Pierre/Bladder Spasms-Continue home medications, Baclofen, Tropsium, MethenamineQuadriplegia-Pt fell on ice while carrying woodHLD-Lipid panel ordered with AM labs-Continue home medication, StatinCODE STATUS-FULL [id number] Not [facility] with a history of DM2, HLD, Quadriplegia, Chronic Pierre, [facility] to [facility]/o chest pressure. Pt developed midsternal chest pressure while eating lunchtoday. Family became concerned after pt c/o of numbness in his arms and legs andcalled EMS. Pt states that he occasionally has similar episodes of numbnesswhich is resolved by repositioning. EMS gave pt 324 mg ASA and pt's pain andnumbness resolved during EMS ride/before he arrived to [facility]. Ptwas found to have mild troponin elevation and was loaded with Plavix and startedon a Heparin gtt. Pt was subsequently transferred to [facility].Past Medical History:Past Medical History:Diagnosis Date Chronic indwelling Pierre catheter Colostomy in place DM (diabetes mellitus) QuadriplegiaPast Surgical History:Past Surgical History:Procedure Laterality Date COLOSTOMYMedications:No medications prior to admission.Allergies:Patient has no allergy information on record.Family History:Family HistoryProblem Relation Age of Onset Coronary artery disease FatherSocial History:Social HistorySocioeconomic History Marital status: Spouse name: Not on file Number of children: Not on file Years of education: Not on file Highest education level: Not on fileOccupational History Not on fileTobacco Use Smoking status: Not on fileSubstance and Sexual Activity Alcohol use: Not on file Drug use: Not on file Sexual activity: Not on fileOther Topics Concern Not on fileSocial History Narrative Not on fileSocial Determinants of HealthFinancial Resource Strain: Difficulty of Paying Living Expenses:Food Insecurity: Worried About Running Out of Food in the Last Year: Ran Out of Food in the Last Year:Transportation Needs: Lack of Transportation (Medical): Lack of Transportation (Non-Medical):Physical Activity: Days of Exercise per Week: Minutes of Exercise per Session:Stress: Feeling of Stress :Social Connections: Frequency of Communication with Friends and Family: Frequency of Social Gatherings with Friends and Family: Attends Jewish Services: Active Member of Clubs or Organizations: Attends Club or Organization Meetings: Marital Status:Intimate Partner Violence: Fear of Current or Ex-Partner: Emotionally Abused: Physically Abused: Sexually Abused:Review of SystemsConstitutional: Negative for chills, fatigue and fever.HENT: Negative for congestion, mouth sores, rhinorrhea, sneezing and sorethroat.Respiratory: Negative for cough, chest tightness, shortness of breath andwheezing.Cardiovascular: Negative for chest pain, palpit ations and leg swelling.Gastrointestinal: Negative for abdominal distention, abdominal pain, analbleeding, blood in stool, constipation, diarrhea, nausea and vomiting. Ostomy functioning as normalGenitourinary: Chronic pierre w/ occasional bladder spasmsMusculoskeletal: Negative for arthralgias and back pain. QuadriplegiaSkin: Negative for rash.Neurological: Negative for dizziness, syncope, weakness, light-headedness,numbness and headaches.Hematological: Negative.Psychiatric/Behavioral: Negative.Heart Rate: [67] 67Resp: [24] 24BP: (116)/(72) 116/72Physical ExamVitals reviewed.Constitu tional: General: He is not in acute distress.Vital signs are normal. Appearance: He is well-developed. He is not sickly-appearing or diaphoretic.HENT: Right Ear: Hearing normal. Left Ear: Hearing normal.Cardiovascular: Rate and Rhythm: Normal rate and regular rhythm. Heart sounds: Normal heart sounds, S1 normal and S2 normal. No murmur heard.Peripheral Edema: no lower extremity edema.Pulmonary: Effort: Pulmonary effort is normal. No tachypnea, accessory muscle usage orrespiratory distress. Breath sounds: Normal breath sounds. No wheezing, rhonchi or rales.Abdominal: General: There is no distension. Palpations: Abdomen is soft. Tenderness: There is no abdominal tenderness.Skin: General: Skin is warm and dry. Findings: No rash.Neurological: Mental Status: He is alert and oriented to person, place, and time. GCS: GCS eye subscore is 4. GCS verbal subscore is 5. GCS motor subscore is6.Psychiatric: Mood and Affect: Mood and affect and mood normal. Speech: Speech normal. Behavior: Behavior normal. Behavior is cooperative. Thought Content: Thought content normal. Cognition and Memory: Cognition normal. Judgment: Judgment normal.Diagnostic Review labs drawn/pend ingSignature: Bro Blanco NPDate: November 20, 2020Time: 9:43 PM Name Value Range Interpretation Code Description Data Amina e(s) Supporting Document(s) ID Date Data Source [id number] 11/20/2020 10:31:02 PM EDT [address] [id number] Name: Ian FreemanOB: 1945Sex: MOrdering Provider: BRO Juarez Prov: BRO Low Provider: Procedure Performed: XR CHEST PORTABLEExam Date: 11/20/2020 21:29MRN: [id number] Number: [id number] Class: INFORMATION: Exam: XR Chest Exam date and time: 11/20/2020 9:29 PM Age: 74 years old Clinical indication: Chest pressure; Chest pain TECHNIQUE: Imaging protocol: XR of the chest. Views: 1 view. COMPARISON: No relevant prior studies available. FINDINGS: Tubes, catheters and devices: Cardiac leads superimposed over the chest bilaterally. Lungs: No alveolar infiltrate. Pleural spaces: No pneumothorax. No pleural fluid collection. Heart/Mediastinum: Normal heart size. Bones/joints: Spinal and shoulder degenerative changes. IMPRESSION: No active pulmonary disease. Report electronically signed by: TEZ OLSEN MD on 11/20/2020 22:31:02 Name Value Range Interpretation Code Description Data Amina rce(s) Supporting Document(s) ID Date Data Source [id number] 11/22/2020 09:22:20 AM EDT [facility] [place] [facility] Name Value Range Interpretation Code Description Data Amina rce(s) Supporting Document(s) CHOLESTEROL @ 159 mg/dL (0-200) [facility] [place] [facility] TRIGLYCERIDE @ 203 mg/dL (30-200) H [facility] HDL CHOLESTEROL @ 35 mg/dL (>40) L [facility] [place] [facility] PER NCEP ATP III GUIDELINES:RESULTS LOWE R THAN 40 MG/DL ARE SUGGESTIVEOF INCREASED RISK FOR CORONARY ARTERYDISEASE. RESULTS > OR = TO 60 MG/DL ARECONSIDERED A NEGATIVE RISK FACTOR. CHOL/HDL RATIO 4.5 RATIO [facility] [place] [facility] INTERPRETATION OF CHOL-HDL RATIO CHD RISK FEMALE MALEVERY HIGH >8.3 >14.3HIGH 5.6- 8.3 6.7- 14.3AVERAGE 3.7- 5.6 4.0- 6.7BELOW AVERAGE 2.5- 3.7 2.7- 4.0PROTECTED <2.5 <2.7 LDL CHOL (CALC) 83 mg/dL (<130) [facility] [place] [facility] PER NCEP ATP III GUIDELINES: OPTIMAL < 100 NEAR OPTIMAL 100 - 129BORDERLINE HIGH 130 - 159 HIGH 160 - 189 VERY HIGH > 189 ID Date Data Source [id number] 11/21/2020 01:24:42 AM EDT [facility] Name Value Range Interpretation Code Description Data Amina rce(s) Supporting Document(s) PROCALCITONIN @ <0.10 ng/mL (<0.10) [facility] INTERPRETATION OF RESULT < 0.51 Sepsis is not likely.0.51-2.00 Sepsis is possible, but other conditions are known to elevate PCT.2.01-9.99 Sepsis is likely, unless other causes are known. > 9.99 Important systemic inflammatory response, almost exclusively due to severe bacterial sepsis or septic shock.PERFORMED AT [address] [place] [id number] ID Date Data Source [id number] 11/21/2020 12:11:22 AM EDT [facility] Name Value Range Interpretation Code Description Data Amina rce(s) Supporting Document(s) TROPONIN I 0.61 ng/mL (<0.05) H [facility] Less than 0.05: Myocardial injury unlike lyGreater than or equal to 0.05: Highly suggestive of myocardial injuryCorrelation with rise and/or fall ofserial troponins, clinical symptomsand ECG changes is necessary. ID Date Data Source [id number] 11/21/2020 12:11:22 AM EDT [facility] Name Value Range Interpretation Code Description Data Amina rce(s) Supporting Document(s) NT PRO BNP 542 pg/mL (0-125) H [facility] ID Date Data Source [id number] 11/21/2020 12:11:07 AM EDT [facility] Name Value Range Interpretation Code Description Data Amina rce(s) Supporting Document(s) MAGNESIUM 1.5 mg/dL (1.7-2.4) L [facility] ID Date Data Source [id number] 11/21/2020 12:11:07 AM EDT [facility] Name Value Range Interpretation Code Description Data Amina rce(s) Supporting Document(s) SODIUM 139 mmol/L (136-145) [facility] POTASSIUM 3.7 mmol/L (3.6-5.2) [facility] CHLORIDE 106 mmol/L (100-108) [facility] CO2 29 mmol/L (22-31) [facility] ANION GAP 4 mmol/L (7-16) L [facility] UREA NITROGEN 9 mg/dL (7-24) [facility] CREATININE 0.65 mg/dL (0.80-1.30) L [facility] BUN/CREAT RATIO 13.8 RATIO (10.0-20.0) [facility] GLUCOSE 137 mg/dL (70-99) H [facility] CALCIUM 8.9 mg/dL (8.4-10.2) [facility] TOTAL PROTEIN 7.0 g/dL (6.4-8.2) [facility] ALBUMIN 3.3 g/dL (3.2-4.5) [facility] GLOBULIN 3.7 g/dL (2.7-4.3) [facility] ALB/GLOB RATIO 0.9 RATIO [facility] ALKALINE PHOSPHATASE 98 U/L (45-117) [facility] BILIRUBIN,TOTAL 0.7 mg/dL (0.0-1.0) [facility] PLEASE NOTE:Total bilirubin results may be falselyelevated in patients taking Eltrombopag. AST (SGOT) 15 U/L (11-39) [facility] ALT (SGPT) 21 U/L (12-78) [facility] GFR >60 ml/min/1.73m2 (>59) [facility] GFR ( AMER) >60 ml/min/1.73m2 (>59) [facility] GFR INTERPRETATION [facility] --NORMAL KIDNEY FUNCTION OR MILD DISEASE - GFR >OR= 60CHRONIC KIDNEY DISEASE - GFR 15 - 59RENAL FAILURE - GFR <15 Est. GFR calculation based on the MDRDstudy equation, which assumes a steadystate for creatinine. Est. GFR should notbe used for medication dosing. ID Date Data Source [id number] 11/21/2020 12:02:21 AM EDT [facility] Name Value Range Interpretation Code Description Data Amina rce(s) Supporting Document(s) HEMOGLOBIN A1C @ 7.0 % (4.0-6.0) H [facility] Performed using [employer] immunoassa y.Care must be taken when interpreting [id number] in patients with a hemoglobin variantor decreased erythrocyte lifespan. Values 5.7 - 6.4% suggest prediabetes.Values >=6.5% are diagnostic for diabetes.REFERENCE: DIABETES CARE 2018: 41(S13-S27).PERFORMED AT [address] [place] [id number] EST AVERAGE GLUCOSE 154 mg/dL [facility] ID Date Data Source [id number] 11/20/2020 11:21:26 PM EDT [facility] Name Value Range Interpretation Code Description Data Amina rce(s) Supporting Document(s) PT 11.3 s (9.2-11.9) [facility] INR 1.08 [facility] SUGGESTED THERAPEUTIC RANGES USING INR F ORSTABILIZED ANTICOAGULATED PATIENTS:STANDARD DOSE THERAPY INR 2.0-3.0 DVT, PE, PREVENT DVT OR EMBOLISMHIGH DOSE THERAPY INR 2.5-3.5 PREVENT EMBOLISM FROM MECHANICAL HEART VALVE ID Date Data Source [id number] 11/20/2020 11:21:26 PM EDT [facility] Name Value Range Interpretation Code Description Data Amina rce(s) Supporting Document(s) APTT 41.0 s (22.0-34.3) H [facility] ID Date Data Source [id number] 11/20/2020 11:13:30 PM EDT [facility] Name Value Range Interpretation Code Description Data Amina rce(s) Supporting Document(s) WBC 5.6 10*3/uL (4.1-11.0) [facility] RBC 4.53 10*6/uL (4.60-6.10) L [facility] HGB 13.6 g/dL (13.5-18.0) [facility] HCT 41.0 % (41.0-53.0) [facility] MCV 90.7 fL (80.0-95.0) [facility] MCH 30.1 pg (27.0-32.0) [facility] MCHC 33.2 g/dL (32.0-36.0) [facility] RDW 13.7 % (10.5-14.5) [facility] PLT 147 10*3/uL (150-450) L [facility] MPV 8.6 fL (7.1-10.7) [facility] NEUT % 68.5 % (35.0-75.0) [facility] LYMPH % 24.7 % (16.0-52.0) [facility] MONO % 5.4 % (0.0-8.0) [facility] EOS % 1.3 % (0.0-5.0) [facility] BASO % 0.1 % (0.0-4.0) [facility] NEUT # 3.8 10*3/uL (1.8-7.7) [facility] LYMPH # 1.4 10*3/uL (1.2-4.8) [facility] MONO # 0.3 10*3/uL (0.0-0.8) [facility] Eosinophils [#/volume] in Blood by Automated count 0.1 10*3/uL (0.0-0 .5) [facility] BASO # 0.0 10*3/uL (0.0-0.2) [facility] ID Date Data Source [id number] 11/20/2020 04:36:00 PM EDT [facility] Name Value Range Interpretation Code Description Data Amina rce(s) Supporting Document(s) SARS coronavirus 2 RNA [Presence] in Res piratory specimen by LARRY with probe detection NEGATIVE [facility] This lab was ordered by [facility] a nd reported by [facility]. ID Date Data Source [id number] 04/22/2020 04:00:00 PM EST [facility] Name Value Range Interpretation Code Description Data Amina rce(s) Supporting Document(s) SARS coronavirus 2 RNA [Presence] in Res piratory specimen by LARRY with probe detection [facility] This lab was ordered by [facility] a nd reported by [facility]. Procedure Social History Code Duration Value Status Description Data Source(s ) Alcohol intake 11/22/2020 12:00:00 AM EDT Ex-drinker (finding) comp leted Ex- drinker (finding) [facility] Smoking 11/20/2020 12:00:00 AM EDT Former smoker completed Former smoker [facility] Smoking 07/21/2020 12:00:00 AM EST Never Smoker completed Never S moker eCW1 ([facility]) Smoking 07/21/2020 12:00:00 AM EST Never Smoker completed Never S moker eCW1 ([facility]) Smoking 07/21/2020 12:00:00 AM EST Never Smoker completed Never S moker eCW1 ([facility]) Smoking 06/23/2020 12:00:00 AM EST Never Smoker completed Never S moker eCW1 ([facility]) Smoking 06/23/2020 12:00:00 AM EST Never Smoker completed Never S moker eCW1 ([facility]) Smoking 06/23/2020 12:00:00 AM EST Never Smoker completed Never S moker eCW1 ([facility]) Smoking 06/09/2020 12:00:00 AM EST Never Smoker completed Never S moker eCW1 ([facility]) Smoking 06/09/2020 12:00:00 AM EST Never Smoker completed Never S moker eCW1 ([facility]) Vital Signs ID Date Data Source UNK Name Value Range Interpretation Code Description Data Source(s) Systolic blood pressure 120 mm[Hg] 120 mm[Hg] [facility] Diastolic blood pressure 89 mm[Hg] 89 mm[Hg] [facility] Body temperature 37 P[place] 37 [facility] Respiratory rate 18 /min 18 /min [facility] Oxygen saturation in Arterial blood by Pulse oximetry 97 % 97 % [facility] Heart rate 77 /min 77 /min [facility] Body height 180.[address] [facility] Body weight 115.[address] [facility] Body mass index (BMI) [Ratio] 35.37 kg/m2 35.37 kg/m2 [facility] Body weight 250 [lb_av] 250 [lb_av] eCW1 ([facility]) Body weight kg eCW1 ([facility]) Body height 70 [in_i] 70 [in_i] eCW1 ([facility]) Body mass index (BMI) [Ratio] 35.87 kg/m2 35.87 kg/m2 W1 ([facility]) Heart rate 70 /min 70 /min eCW1 ([facility]) Respiratory rate 17 /min 17 /min eCW1 ([facility]) Body temperature 98.4 [degF] 98.4 [degF] eCW1 ( [facility]) Systolic blood pressure 179 mm[Hg] 179 mm[Hg] e CW1 ([facility]) Diastolic blood pressure 76 mm[Hg] 76 mm[Hg] eCW1 ([facility]) Body weight 250 [lb_av] 250 [lb_av] eCW1 ([facility]) Body height 70 [in_i] 70 [in_i] eCW1 ([facility]) Heart rate 64 /min 64 /min eCW1 ([facility]) Respiratory rate 18 /min 18 /min eCW1 ([facility]) Body temperature 97.6 [degF] 97.6 [degF] eCW1 ( [facility]) Systolic blood pressure 130 mm[Hg] 130 mm[Hg] e CW1 ([facility]) Diastolic blood pressure 57 mm[Hg] 57 mm[Hg] eCW1 ([facility]) Body mass index (BMI) [Ratio] 35.87 kg/m2 35.87 kg/m2 eCW1 ([facility]) Body height 70 [in_i] 70 [in_i] eCW1 ([facility]) Body mass index (BMI) [Ratio] 35.87 kg/m2 35.87 kg/m2 eCW1 ([facility]) Heart rate 79 /min 79 /min eCW1 ([facility]) Body weight 250 [lb_av] 250 [lb_av] eCW1 ([facility]) Respiratory rate 18 /min 18 /min eCW1 ([facility]) Body weight kg eCW1 ([facility]) Systolic blood pressure 118 mm[Hg] 118 mm[Hg] e CW1 ([facility]) Body temperature 97.7 [degF] 97.7 [degF] eCW1 ( [facility]) Diastolic blood pressure 56 mm[Hg] 56 mm[Hg] eCW1 ([facility]) Patient Treatment Plan of Care Planned Activity Planned Date Details Description Data Source (s) Acetaminophen 325 MG Oral Tablet 11/22/2020 12:00:[address] [facility] Nitroglycerin 0.4 MG Sublingual Tablet 11/21/2020 04:33:[address] [facility] Acetaminophen 325 MG Oral Tablet 11/21/2020 04:33:[address] [facility]
[2021-03-01 20:36] VITALS: BP 124/58
[2021-03-01] MEDS ORDERED: CIPR-249 PO (20:42)
[2021-03-01] MEDS ORDERED: CIPROFLOXACIN 500MG TABLET PO ONE (20:45)
== END 2021-03-01 21:14 | disposition home or self-care (01) ==
LOC: EDBD 18:07 → M ED 18:07
DX: N39.0 Urinary tract infection, site not specified (principal); T83.198A Other mechanical complication of other urinary devices and implants, initial encounter; Y92.89 Other specified places as the place of occurrence of the external cause; E11.9 Type 2 diabetes mellitus without complications; I25.2 Old myocardial infarction; E78.5 Hyperlipidemia, unspecified; K21.9 Gastro-esophageal reflux disease without esophagitis; G82.50 Quadriplegia, unspecified; Z79.899 Other long term (current) drug therapy; Z79.84 Long term (current) use of oral hypoglycemic drugs

== ENCOUNTER 2021-05-31 18:18 | Emergency (ER) | payer MEDICARE, BC, OTHER, MEDICAID ==
[~2021-05-31] VITALS: Ht 170.2 cm; Wt 115.0 kg
[2021-05-31] MEDS ORDERED: CEPHALEXIN 500 MG CAP PO ONE (21:10)
[2021-05-31] MEDS ORDERED: CEPH500C PO (21:17)
[2021-05-31 21:30] VITALS: BP 127/58
== END 2021-05-31 22:16 | disposition home or self-care (01) ==
LOC: M ED 18:18 → EDBD 18:18 → M ED 22:16
DX: T83.198A Other mechanical complication of other urinary devices and implants, initial encounter (principal); N39.0 Urinary tract infection, site not specified; G82.50 Quadriplegia, unspecified; Z79.84 Long term (current) use of oral hypoglycemic drugs; Z79.899 Other long term (current) drug therapy

== ENCOUNTER 2021-06-26 20:16 | Emergency (ER) | payer MEDICARE, BC, OTHER, MEDICAID ==
[~2021-06-26] VITALS: Ht 177.8 cm; Wt 112.4 kg
[~2021-06-26 20:16] MED LIST changes: +CEPH500C PO
[2021-06-26 20:24] VITALS: BP 167/58
== END 2021-06-26 20:45 | disposition home or self-care (01) ==
LOC: M ED 20:16
DX: T83.198A Other mechanical complication of other urinary devices and implants, initial encounter (principal); E11.9 Type 2 diabetes mellitus without complications; Z79.899 Other long term (current) drug therapy

== ENCOUNTER 2021-07-26 17:44 | Emergency (ER) | payer MEDICARE, BC, OTHER ==
[~2021-07-26] VITALS: Ht 177.8 cm; Wt 113.6 kg
[2021-07-26 18:00] VITALS: BP 131/71
== END 2021-07-26 19:35 | disposition home or self-care (01) ==
LOC: M ED 17:44 → EDBD 17:44 → M ED 19:35
DX: T83.198A Other mechanical complication of other urinary devices and implants, initial encounter (principal); E11.9 Type 2 diabetes mellitus without complications; G82.50 Quadriplegia, unspecified; Z79.84 Long term (current) use of oral hypoglycemic drugs; Z79.899 Other long term (current) drug therapy

== ENCOUNTER 2021-09-29 19:22 | Emergency (ER) | payer MEDICARE, BC, OTHER ==
[2021-09-29 20:13] VITALS: BP 161/74
== END 2021-09-29 21:42 | disposition home or self-care (01) ==
LOC: M ED 19:22 → EDBD 19:22 → M ED 21:42
DX: T83.198A Other mechanical complication of other urinary devices and implants, initial encounter (principal); E11.9 Type 2 diabetes mellitus without complications; E78.5 Hyperlipidemia, unspecified; Z79.899 Other long term (current) drug therapy

== ENCOUNTER 2021-11-26 13:52 | Emergency (ER) | payer MEDICARE, BC, OTHER ==
[~2021-11-26] VITALS: Ht 177.8 cm; Wt 113.6 kg
[2021-11-26] MEDS ORDERED: CEFD300C PO (15:37)
[2021-11-26 17:28] VITALS: BP 107/53
== END 2021-11-26 17:51 | disposition home or self-care (01) ==
LOC: M ED 13:52
DX: T83.198A Other mechanical complication of other urinary devices and implants, initial encounter (principal); N39.0 Urinary tract infection, site not specified; G82.50 Quadriplegia, unspecified; E78.5 Hyperlipidemia, unspecified; Z93.3 Colostomy status; Z79.84 Long term (current) use of oral hypoglycemic drugs; Z79.899 Other long term (current) drug therapy

== ENCOUNTER 2021-12-22 12:54 | Emergency (ER) | payer BC, MEDICARE, OTHER ==
[~2021-12-22] VITALS: Ht 177.8 cm; Wt 109.1 kg
[~2021-12-22 12:54] MED LIST changes: +CEFD300C PO
[2021-12-22] MEDS ORDERED: CIPR-249 PO (15:02)
[2021-12-22 15:26] VITALS: BP 164/67
== END 2021-12-22 16:16 | disposition home or self-care (01) ==
LOC: EDBD 12:54 → M ED 12:54
DX: R33.9 Retention of urine, unspecified (principal); T83.198A Other mechanical complication of other urinary devices and implants, initial encounter; Z93.3 Colostomy status

== ENCOUNTER 2022-06-04 13:39 | Emergency (ER) | payer BC, MEDICARE, OTHER ==
[2022-06-04 14:03] VITALS: BP 126/59
== END 2022-06-04 14:34 | disposition home or self-care (01) ==
LOC: EDBD 13:39 → M ED 14:29
DX: T83.198A Other mechanical complication of other urinary devices and implants, initial encounter (principal); G82.50 Quadriplegia, unspecified; E78.5 Hyperlipidemia, unspecified; K59.00 Constipation, unspecified; Z79.899 Other long term (current) drug therapy; Z79.84 Long term (current) use of oral hypoglycemic drugs

== ENCOUNTER 2022-09-16 12:40 | Emergency (ER) | payer MEDICARE, OTHER ==
[~2022-09-16] VITALS: Ht 180.3 cm; Wt 99.1 kg
[2022-09-16 12:50] VITALS: BP 152/78
== END 2022-09-16 14:14 | disposition home or self-care (01) ==
LOC: M ED 12:40
DX: T83.098A Other mechanical complication of other urinary catheter, initial encounter (principal); G82.50 Quadriplegia, unspecified; E11.9 Type 2 diabetes mellitus without complications; K21.9 Gastro-esophageal reflux disease without esophagitis; K59.00 Constipation, unspecified; Z79.84 Long term (current) use of oral hypoglycemic drugs; Z79.899 Other long term (current) drug therapy

== ENCOUNTER 2022-09-22 17:51 | Emergency (ER) | payer OTHER ==
[~2022-09-22] VITALS: Ht 179.1 cm; Wt 100.0 kg
[2022-09-22 18:01] VITALS: BP 157/80
[2022-09-22 20:07] LABS: APPEARANCE, URINE HAZY (CLEAR); BACTERIA, URINE AUTO NEGATIVE (NEGATIVE); BILIRUBIN, URINE AUTO NEGATIVE (NEGATIVE); BLOOD, URINE BLOOD 3+ (NEGATIVE); COLOR, URINE YELLOW (YELLOW); GLUCOSE, URINE (UA) AUTO NEGATIVE (NEGATIVE); KETONE, URINE AUTO NEGATIVE (NEGATIVE); LEUKOCYTE ESTERASE, URINE AUTO 3+ (NEGATIVE); NITRITE, URINE AUTO NEGATIVE (NEGATIVE); PROTEIN, URINE AUTO 1+ mg/dL (NEGATIVE); RBC, URINE AUTO 109 /HPF (0-3); SPECIFIC GRAVITY URINE AUTO 1.014 (1.002-1.035); SQUAMOUS EPITHELIAL CELL UR AU 0 /HPF (0-6); UROBILINOGEN, URINE AUTO 0.2 mg/dL (0.0-2.0); WBC, URINE AUTO 129 /HPF (0-3)
[2022-09-22] MEDS ORDERED: BACTRIM 160MG/800MG DS TAB PO ONE (20:20)
[2022-09-22] MEDS ORDERED: BACT800T5 PO (20:37)
== END 2022-09-22 21:48 | disposition home or self-care (01) ==
LOC: M ED 17:51 → EDBD 17:51 → M ED 21:48
DX: T83.098A Other mechanical complication of other urinary catheter, initial encounter (principal); Y92.89 Other specified places as the place of occurrence of the external cause; Y93.89 Activity, other specified; Y99.8 Other external cause status; G82.50 Quadriplegia, unspecified; K21.9 Gastro-esophageal reflux disease without esophagitis; Z79.899 Other long term (current) drug therapy; Z79.84 Long term (current) use of oral hypoglycemic drugs

== ENCOUNTER 2022-10-08 15:45 | Emergency (ER) | payer MEDICARE, OTHER ==
[~2022-10-08 15:45] MED LIST changes: +BACT800T5 PO
[2022-10-08] MEDS ORDERED: LIDOCAINE 2% 5ML JELLY UROJET TOP ONE (19:40)
[2022-10-08 22:46] VITALS: BP 117/54
[2022-10-09] MEDS ORDERED: CEFD300C PO (17:55)
== END 2022-10-09 00:05 | disposition home or self-care (01) ==
LOC: M ED 15:45 → EDBD 15:45 → M ED 10-09 00:05
DX: T83.098A Other mechanical complication of other urinary catheter, initial encounter (principal); E11.9 Type 2 diabetes mellitus without complications; G82.50 Quadriplegia, unspecified; F17.200 Nicotine dependence, unspecified, uncomplicated; Z79.899 Other long term (current) drug therapy; Z79.84 Long term (current) use of oral hypoglycemic drugs

== ENCOUNTER 2022-10-09 14:53 | Emergency (ER) | payer MEDICARE, OTHER ==
[~2022-10-09] VITALS: Ht 177.8 cm; Wt 109.1 kg
[2022-10-09 15:46] LABS: BASO % 0.1 % (0.0-1.0); HEMATOCRIT 32.6 % (42.0-52.0); HEMOGLOBIN 10.7 g/dl (13.5-17.5); LYMPH # 0.6 10^3/uL (1.5-5.0); MEAN CORPUSCULAR HEMOGLOBIN 29.2 pg (27.0-33.0); MEAN CORPUSCULAR HGB CONC 32.8 g/dl (32.0-36.5); MEAN CORPUSCULAR VOLUME 89.1 fl (80.0-96.0); MONO # 0.2 10^3/uL (0.0-0.8); MONO % 2.8 % (2.0-8.0); NEUTROPHILS # 6.9 10^3/uL (1.5-8.5); NEUTROPHILS % 88.7 % (36.0-66.0); PLATELET COUNT, AUTOMATED 127 10^3/uL (150-450); RED BLOOD COUNT 3.66 10^6/uL (4.30-6.10); WHITE BLOOD COUNT 7.8 10^3/uL (4.0-10.0)
[2022-10-09 16:02] LABS: BLOOD UREA NITROGEN 24 MG/DL (9-23); CALCIUM LEVEL 8.4 MG/DL (8.3-10.6); CARBON DIOXIDE LEVEL 23 MMOL/L (20-31); CHLORIDE LEVEL 99 MMOL/L (98-107); CREATININE FOR GFR 0.68 MG/DL (0.70-1.30); GLOMERULAR FILTRATION RATE > 60.0 (>42); GLUCOSE, FASTING 181 MG/DL (74-106); SODIUM LEVEL 132 MMOL/L (136-145)
[2022-10-09 16:45] VITALS: BP 134/60
[2022-10-09] MEDS ORDERED: CEFD300C PO (17:55)
== END 2022-10-09 16:55 | disposition home or self-care (01) ==
LOC: M ED 14:53 → EDBD 14:53 → M ED 16:55
DX: R31.9 Hematuria, unspecified (principal); T83.028A Displacement of other urinary catheter, initial encounter; E11.9 Type 2 diabetes mellitus without complications; G82.50 Quadriplegia, unspecified; Z79.899 Other long term (current) drug therapy; Z79.84 Long term (current) use of oral hypoglycemic drugs

== ENCOUNTER → 2023-05-24 | Outpatient (REF) | payer OTHER ==
[2023-05-24 18:11] LABS: APPEARANCE, URINE CLOUDY (CLEAR); BACTERIA, URINE AUTO 1+ (NEGATIVE); BILIRUBIN, URINE AUTO NEGATIVE (NEGATIVE); BLOOD, URINE BLOOD 2+ (NEGATIVE); COLOR, URINE YELLOW (YELLOW); GLUCOSE, URINE (UA) AUTO 2+ mg/dL (NEGATIVE); KETONE, URINE AUTO NEGATIVE (NEGATIVE); LEUKOCYTE ESTERASE, URINE AUTO 3+ (NEGATIVE); MUCUS, URINE SMALL (NEGATIVE); NITRITE, URINE AUTO NEGATIVE (NEGATIVE); PROTEIN, URINE AUTO 1+ mg/dL (NEGATIVE); RBC, URINE AUTO 74 /HPF (0-3); SPECIFIC GRAVITY URINE AUTO 1.009 (1.002-1.035); SQUAMOUS EPITHELIAL CELL UR AU 0 /HPF (0-6); UROBILINOGEN, URINE AUTO 0.2 mg/dL (0.0-2.0); WBC, URINE AUTO 144 /HPF (0-3)
== END ==
LOC: M LAB REF 17:03
DX: N31.9 Neuromuscular dysfunction of bladder, unspecified (principal)

== ENCOUNTER → 2023-07-09 | Outpatient (REF) | payer MEDICARE ==
[2023-07-09 16:27] LABS: APPEARANCE, URINE CLOUDY (CLEAR); BACTERIA, URINE AUTO NEGATIVE (NEGATIVE); BILIRUBIN, URINE AUTO NEGATIVE (NEGATIVE); BLOOD, URINE BLOOD 1+ (NEGATIVE); COLOR, URINE AMBER (YELLOW); GLUCOSE, URINE (UA) AUTO NEGATIVE (NEGATIVE); KETONE, URINE AUTO NEGATIVE (NEGATIVE); LEUKOCYTE ESTERASE, URINE AUTO 3+ (NEGATIVE); MUCUS, URINE SMALL (NEGATIVE); NITRITE, URINE AUTO NEGATIVE (NEGATIVE); PROTEIN, URINE AUTO 2+ mg/dL (NEGATIVE); RBC, URINE AUTO 51 /HPF (0-3); SPECIFIC GRAVITY URINE AUTO 1.012 (1.002-1.035); SQUAMOUS EPITHELIAL CELL UR AU 0 /HPF (0-6); UROBILINOGEN, URINE AUTO 0.2 mg/dL (0.0-2.0); WBC, URINE AUTO TNTC /HPF (0-3)
== END ==
LOC: M LAB REF 15:45
PROVIDERS: ATTEND Family Medicine
DX: N31.9 Neuromuscular dysfunction of bladder, unspecified (principal)

== ENCOUNTER → 2024-03-10 | Outpatient (REF) | payer MEDICARE ==
[~2024-03-10] MED LIST changes: +CEFD1CAP9 PO; +FINA5TAB2 PO; +JANU25TA PO; +MULT-40 PO; +MYRB50TA PO; +POTA-151 PO; +PROBCAP14 PO; -SIME180C25 PO; +SIME1CAP4 PO; +VESI10TA2 PO
[2024-03-10 16:25] LABS: APPEARANCE, URINE CLOUDY (CLEAR); BACTERIA, URINE AUTO 2+ (NEGATIVE); BILIRUBIN, URINE AUTO NEGATIVE (NEGATIVE); BLOOD, URINE BLOOD 3+ (NEGATIVE); COLOR, URINE YELLOW (YELLOW); GLUCOSE, URINE (UA) AUTO NEGATIVE (NEGATIVE); KETONE, URINE AUTO NEGATIVE (NEGATIVE); LEUKOCYTE ESTERASE, URINE AUTO 3+ (NEGATIVE); MUCUS, URINE SMALL (NEGATIVE); NITRITE, URINE AUTO NEGATIVE (NEGATIVE); PROTEIN, URINE AUTO 1+ mg/dL (NEGATIVE); RBC, URINE AUTO 155 /HPF (0-3); SPECIFIC GRAVITY URINE AUTO 1.008 (1.002-1.035); SQUAMOUS EPITHELIAL CELL UR AU 0 /HPF (0-6); UROBILINOGEN, URINE AUTO 0.2 mg/dL (0.0-2.0); WBC, URINE AUTO TNTC /HPF (0-3)
== END ==
LOC: M LAB REF 15:31
PROVIDERS: ATTEND Family Medicine
DX: N39.0 Urinary tract infection, site not specified (principal)

== ENCOUNTER 2024-03-24 11:00 | Inpatient (IN) | payer MEDICARE, BC ==
[2024-03-24 11:37] LABS: VENOUS BASE EXCESS -0.7 (-2.0-2.0); VENOUS HCO3 25.7 MMOL/L (23.0-27.0); VENOUS O2 SATURATION 62.9 % (60.0-80.0); VENOUS PARTIAL PRESSURE CO2 48.8 mmHg (38.0-50.0); VENOUS PARTIAL PRESSURE O2 35.9 mmHg (30.0-50.0); VENOUS PH 7.339 UNITS (7.330-7.430); VENOUS TOTAL CO2 27.2 MMOL/L (24.0-28.0)
[2024-03-24 11:43] LABS: BASO % 0.1 % (0.0-1.0); HEMATOCRIT 41.5 % (42.0-52.0); HEMOGLOBIN 13.8 g/dl (13.5-17.5); LYMPH # 0.8 10^3/uL (1.5-5.0); LYMPH % 6.4 % (24.0-44.0); MEAN CORPUSCULAR HEMOGLOBIN 29.6 pg (27.0-33.0); MEAN CORPUSCULAR HGB CONC 33.3 g/dl (32.0-36.5); MEAN CORPUSCULAR VOLUME 89.1 fl (80.0-96.0); MONO # 0.4 10^3/uL (0.0-0.8); MONO % 2.9 % (2.0-8.0); NEUTROPHILS # 10.7 10^3/uL (1.5-8.5); NEUTROPHILS % 90.2 % (36.0-66.0); PLATELET COUNT, AUTOMATED 188 10^3/uL (150-450); RED BLOOD COUNT 4.66 10^6/uL (4.30-6.10); WHITE BLOOD COUNT 11.9 10^3/uL (4.0-10.0)
[2024-03-24] MEDS: PIPERACILLIN/TAZOBACTAM SOD 4.5 GM in DEXTROSE 5% (D5W) ADV/MINI-BAG 50 ML IV ONE (11:50)
[2024-03-24] MEDS: NS (Normal Saline) 0.9% 1,000 ML IV ONE ×2 (11:50→16:50)
[2024-03-24 12:21] LABS: INR 1.09; PARTIAL THROMBOPLASTIN TIME 24.6 SECONDS (24.8-34.2); PROTHROMBIN TIME 14.4 SECONDS (12.5-14.5)
[2024-03-24 12:30] LABS: APPEARANCE, URINE TURBID (CLEAR); BACTERIA, URINE AUTO NEGATIVE (NEGATIVE); BILIRUBIN, URINE AUTO NEGATIVE (NEGATIVE); BLOOD, URINE BLOOD 2+ (NEGATIVE); COLOR, URINE AMBER (YELLOW); GLUCOSE, URINE (UA) AUTO NEGATIVE (NEGATIVE); KETONE, URINE AUTO NEGATIVE (NEGATIVE); LEUKOCYTE ESTERASE, URINE AUTO 3+ (NEGATIVE); NITRITE, URINE AUTO NEGATIVE (NEGATIVE); PROTEIN, URINE AUTO 2+ mg/dL (NEGATIVE); RBC, URINE AUTO 16 /HPF (0-3); SPECIFIC GRAVITY URINE AUTO 1.008 (1.002-1.035); SQUAMOUS EPITHELIAL CELL UR AU 0 /HPF (0-6); UROBILINOGEN, URINE AUTO 0.2 mg/dL (0.0-2.0); WBC, URINE AUTO TNTC /HPF (0-3)
[2024-03-24] MEDS: NS (Normal Saline) 0.9% 1,970 ML in IV 1 EA IV ONE (13:12)
[2024-03-24 13:26] LABS: Trichomonas vaginalis (AMP) NOT DETECTED (NEGATIVE)
[2024-03-24 13:36] LABS: CK-MB VALUE MASS < 1.0 NG/ML (<3.6)
[2024-03-24 13:38] LABS: CPK CREATINE PHOSPHOKINASE 27 U/L (46-171)
[2024-03-24 13:49] LABS: GC DNA AMPLIFICATION NEGATIVE (NEGATIVE)
[2024-03-24] MEDS ORDERED: HOME MED LIST COMPLETE! XX SCH (14:55)
[2024-03-24 15:07] LABS: ALBUMIN 2.4 G/DL (3.2-5.2); ALKALINE PHOSPHATASE 59 U/L (40-129); ALT/SGPT 22 U/L (7.0-40); AMYLASE < 20 U/L (30-118); AST/SGOT 47 U/L (<34); BILIRUBIN,DIRECT 0.4 MG/DL (<0.4); BILIRUBIN,TOTAL 1.5 MG/DL (0.3-1.2); BLOOD UREA NITROGEN 25 MG/DL (9-23); CALCIUM LEVEL 7.6 MG/DL (8.3-10.6); CARBON DIOXIDE LEVEL 20 MMOL/L (20-31); CHLORIDE LEVEL 106 MMOL/L (98-107); CK-MB VALUE MASS < 1.0 NG/ML (<3.6); CPK CREATINE PHOSPHOKINASE 40 U/L (46-171); GLOMERULAR FILTRATION RATE > 60.0 (>42); GLUCOSE, FASTING 186 MG/DL (74-106); SODIUM LEVEL 135 MMOL/L (136-145); TOTAL PROTEIN 6.2 G/DL (5.7-8.2)
[2024-03-24 15:27] LABS: PROCALCITONIN 0.53 ng/ml
[2024-03-24] MEDS ORDERED: NS (Normal Saline) 0.9% 1,000 ML IV ONE (16:50)
[2024-03-24] MEDS: NS (Normal Saline) 0.9% 1,000 ML IV SCH (19:10)
[2024-03-24] MEDS ORDERED: PILL CUTTER 1 EACH XX PRN (19:25)
[2024-03-24 20:47] VITALS: BP 90/50; TEMP 101.1; O2SAT 92
[2024-03-24] MEDS: BACLOFEN 10 MG TAB PO SCH (21:46)
[2024-03-24] MEDS: ACETAMINOPHEN *IV* 1,000 MG in IV 1 EA IV ONE (21:46)
[2024-03-24] MEDS: SIMVASTATIN 20 MG TAB PO SCH (21:46)
[2024-03-24] MEDS: PIPERACILLIN/TAZOBACTAM SOD 4.5 GM in DEXTROSE 5% (D5W) ADV/MINI-BAG 50 ML IV SCH (22:16)
[2024-03-25 00:15] VITALS: BP 94/55; TEMP 99.5; O2SAT 97
[2024-03-25 04:21] VITALS: BP 95/49; TEMP 98.8; O2SAT 97
[2024-03-25 06:14] LABS: BASO % 0.1 % (0.0-1.0); EOS % 0.1 % (0.0-3.0); LYMPH # 0.8 10^3/uL (1.5-5.0); LYMPH % 8.3 % (24.0-44.0); MEAN CORPUSCULAR HEMOGLOBIN 29.5 pg (27.0-33.0); MEAN CORPUSCULAR HGB CONC 32.8 g/dl (32.0-36.5); MEAN CORPUSCULAR VOLUME 90.1 fl (80.0-96.0); MONO # 0.6 10^3/uL (0.0-0.8); MONO % 6.9 % (2.0-8.0); NEUTROPHILS # 7.6 10^3/uL (1.5-8.5); NEUTROPHILS % 83.9 % (36.0-66.0); PLATELET COUNT, AUTOMATED 138 10^3/uL (150-450); RED BLOOD COUNT 3.93 10^6/uL (4.30-6.10)
[2024-03-25 06:28] LABS: BLOOD UREA NITROGEN 20 MG/DL (9-23); CALCIUM LEVEL 8.9 MG/DL (8.3-10.6); CARBON DIOXIDE LEVEL 25 MMOL/L (20-31); CHLORIDE LEVEL 104 MMOL/L (98-107); CREATININE FOR GFR 0.85 MG/DL (0.70-1.30); GLOMERULAR FILTRATION RATE > 60.0 (>42); GLUCOSE, FASTING 144 MG/DL (74-106); HEMATOCRIT 35.4 % (42.0-52.0); HEMOGLOBIN 11.6 g/dl (13.5-17.5); POTASSIUM SERUM 3.6 MMOL/L (3.5-5.1); SODIUM LEVEL 136 MMOL/L (136-145)
[2024-03-25 07:22] VITALS: BP 112/52; TEMP 98.1; O2SAT 96
[2024-03-25] MEDS: UNRESOLVED PATIENT OWN MED ORDER XX SCH (09:00)
[2024-03-25] MEDS: FINASTERIDE 5MG TAB PO SCH (09:29)
[2024-03-25] MEDS: SITagliptin 50 MG TAB (JANUVIA) PO SCH (09:29)
[2024-03-25] MEDS: cefTRIAXone SOD 2 GM in DEXTROSE 5% (D5W) ADV/MINI-BAG 50 ML IV SCH (09:29)
[2024-03-25] MEDS ORDERED: GLUCOSE 4 GM CHEW PO PRN (11:20)
[2024-03-25] MEDS ORDERED: DEXTROSE 50% 50ML SYRINGE IV PRN (11:20)
[2024-03-25] MEDS ORDERED: GLUCAGON INJ 1MG VIAL SC PRN (11:20)
[2024-03-25 12:09] VITALS: BP 113/53; TEMP 97.3; O2SAT 96
[2024-03-25] MEDS: SOLIFENACIN 5 MG TAB PO SCH (12:16)
[2024-03-25] MEDS: ASCORBIC ACID 500 MG TAB PO SCH (12:16)
[2024-03-25] MEDS: MULTIVITAMINS/MINERALS THERAP 1 TAB PO SCH (12:16)
[2024-03-25] MEDS: POTASSIUM CHLORIDE 10MEQ SR TABLET PO SCH (12:17)
[2024-03-25] MEDS: HEPARIN SOD (PORCINE) 5000UNITS/ML 1ML VIAL/SYRINGE SQ SCH (14:26)
[2024-03-25] MEDS: INSULIN LISPRO (NovoLOG) PER UNIT SC SCH ×2 (14:26→21:00)
[2024-03-25 15:36] VITALS: BP 108/55; TEMP 98.8; O2SAT 96
[2024-03-25 19:52] VITALS: BP 107/53; TEMP 102; O2SAT 95
[2024-03-25] MEDS: OYSTER SHELL CALCIUM 500 MG TAB PO SCH (22:05)
[2024-03-25] MEDS: ACETAMINOPHEN 500 MG TAB PO ONE (22:06)
[2024-03-25] MEDS: MAGNESIUM OXIDE 400MG TAB (MAG-OX) PO SCH (22:06)
[2024-03-26] VITALS (7 sets, daily range): BP systolic 116–141; BP diastolic 51–65; TEMP 97.5–100.7; O2SAT 94–97
[2024-03-26 06:51] LABS: EOS % 0.2 % (0.0-3.0); HEMATOCRIT 30.6 % (42.0-52.0); HEMOGLOBIN 10.1 g/dl (13.5-17.5); LYMPH # 0.8 10^3/uL (1.5-5.0); LYMPH % 16.1 % (24.0-44.0); MEAN CORPUSCULAR HEMOGLOBIN 29.6 pg (27.0-33.0); MEAN CORPUSCULAR VOLUME 89.7 fl (80.0-96.0); MONO # 0.4 10^3/uL (0.0-0.8); MONO % 7.4 % (2.0-8.0); NEUTROPHILS # 3.8 10^3/uL (1.5-8.5); NEUTROPHILS % 75.5 % (36.0-66.0); PLATELET COUNT, AUTOMATED 124 10^3/uL (150-450); RED BLOOD COUNT 3.41 10^6/uL (4.30-6.10)
[2024-03-26 07:16] LABS: BLOOD UREA NITROGEN 12 MG/DL (9-23); CALCIUM LEVEL 8.5 MG/DL (8.3-10.6); CARBON DIOXIDE LEVEL 25 MMOL/L (20-31); CHLORIDE LEVEL 103 MMOL/L (98-107); CREATININE FOR GFR 0.64 MG/DL (0.70-1.30); GLOMERULAR FILTRATION RATE > 60.0 (>42); GLUCOSE, FASTING 129 MG/DL (74-106); POTASSIUM SERUM 3.3 MMOL/L (3.5-5.1); SODIUM LEVEL 134 MMOL/L (136-145)
[2024-03-26] MEDS: PIPERACILLIN/TAZOBACTAM SOD 3.375 GM in DEXTROSE 5% (D5W) ADV/MINI-BAG 50 ML IV SCH (08:13)
[2024-03-26] MEDS: MIRALAX *UNIT DOSE* 17GM PACKET PO SCH (21:16)
[2024-03-27 04:21] VITALS: BP 127/66; TEMP 97.7; O2SAT 96
[2024-03-27 07:04] LABS: EOS % 0.7 % (0.0-3.0); HEMATOCRIT 32.2 % (42.0-52.0); HEMOGLOBIN 10.6 g/dl (13.5-17.5); LYMPH # 0.7 10^3/uL (1.5-5.0); LYMPH % 17.3 % (24.0-44.0); MEAN CORPUSCULAR HEMOGLOBIN 29.1 pg (27.0-33.0); MEAN CORPUSCULAR HGB CONC 32.9 g/dl (32.0-36.5); MEAN CORPUSCULAR VOLUME 88.5 fl (80.0-96.0); MONO # 0.4 10^3/uL (0.0-0.8); MONO % 8.8 % (2.0-8.0); PLATELET COUNT, AUTOMATED 152 10^3/uL (150-450); RED BLOOD COUNT 3.64 10^6/uL (4.30-6.10); WHITE BLOOD COUNT 4.1 10^3/uL (4.0-10.0)
[2024-03-27 07:26] LABS: BLOOD UREA NITROGEN 11 MG/DL (9-23); CALCIUM LEVEL 8.7 MG/DL (8.3-10.6); CARBON DIOXIDE LEVEL 26 MMOL/L (20-31); CHLORIDE LEVEL 101 MMOL/L (98-107); CREATININE FOR GFR 0.62 MG/DL (0.70-1.30); GLOMERULAR FILTRATION RATE > 60.0 (>42); GLUCOSE, FASTING 149 MG/DL (74-106); POTASSIUM SERUM 3.7 MMOL/L (3.5-5.1); SODIUM LEVEL 135 MMOL/L (136-145)
[2024-03-27 12:00] VITALS: BP 120/62; TEMP 97.7; O2SAT 96
[2024-03-27 19:54] VITALS: BP 123/59; TEMP 97.5; O2SAT 95
[2024-03-27] MEDS: CEFDINIR 300 MG CAP (OMNICEF) PO SCH (21:10)
[2024-03-27] MEDS: BACTRIM 160MG/800MG DS TAB PO SCH (21:10)
[2024-03-28 02:18] VITALS: O2SAT 98
[2024-03-28 03:03] VITALS: O2SAT 97
[2024-03-28] MEDS: IPRATROPIUM 0.5MG/ALBUTEROL 2.5MG INH SOL UD 3ML (DUONEB) NEB ONE (03:09)
[2024-03-28 04:12] VITALS: BP 94/59; TEMP 97.9; O2SAT 95
[2024-03-28 06:03] LABS: BASO % 0.2 % (0.0-1.0); EOS % 0.7 % (0.0-3.0); HEMATOCRIT 33.9 % (42.0-52.0); HEMOGLOBIN 11.2 g/dl (13.5-17.5); LYMPH # 0.8 10^3/uL (1.5-5.0); LYMPH % 19.2 % (24.0-44.0); MEAN CORPUSCULAR HEMOGLOBIN 28.6 pg (27.0-33.0); MEAN CORPUSCULAR VOLUME 86.7 fl (80.0-96.0); MONO # 0.3 10^3/uL (0.0-0.8); MONO % 7.5 % (2.0-8.0); PLATELET COUNT, AUTOMATED 163 10^3/uL (150-450); RED BLOOD COUNT 3.91 10^6/uL (4.30-6.10); WHITE BLOOD COUNT 4.3 10^3/uL (4.0-10.0)
[2024-03-28 06:26] LABS: BLOOD UREA NITROGEN 11 MG/DL (9-23); CALCIUM LEVEL 9.1 MG/DL (8.3-10.6); CARBON DIOXIDE LEVEL 25 MMOL/L (20-31); CHLORIDE LEVEL 101 MMOL/L (98-107); CREATININE FOR GFR 0.65 MG/DL (0.70-1.30); GLOMERULAR FILTRATION RATE > 60.0 (>42); GLUCOSE, FASTING 171 MG/DL (74-106); POTASSIUM SERUM 3.8 MMOL/L (3.5-5.1); SODIUM LEVEL 135 MMOL/L (136-145)
[2024-03-28 09:00] VITALS: BP 95/54; TEMP 97.7; O2SAT 98
[2024-03-28] MEDS ORDERED: CEFD300CAP PO ×2 (09:06→09:20)
[2024-03-28] MEDS ORDERED: BACTDSTA PO ×2 (09:06→09:20)
== END 2024-03-28 11:23 | disposition home health service (06) | DRG 698 ==
LOC: M ED 11:00 → M ED INP 19:10 → M PCU 21:14 → M MS5PR 03-26 18:49
PROVIDERS: ADMIT Internal Medicine Nephrology; ATTEND Student in an Organized Health Care Education/Training Program
DX: T83.511A Infection and inflammatory reaction due to indwelling urethral catheter, initial encounter (principal); A41.59 Other Gram-negative sepsis; G82.50 Quadriplegia, unspecified; G93.41 Metabolic encephalopathy; R65.20 Severe sepsis without septic shock; N17.9 Acute kidney failure, unspecified; K59.2 Neurogenic bowel, not elsewhere classified; E87.20 Acidosis, unspecified; N12 Tubulo-interstitial nephritis, not specified as acute or chronic; D69.6 Thrombocytopenia, unspecified; N31.9 Neuromuscular dysfunction of bladder, unspecified; E11.9 Type 2 diabetes mellitus without complications; B96.1 Klebsiella pneumoniae [K. pneumoniae] as the cause of diseases classified elsewhere; D64.9 Anemia, unspecified; Y84.6 Urinary catheterization as the cause of abnormal reaction of the patient, or of later complication, without mention of misadventure at the time of the procedure; T83.028A Displacement of other urinary catheter, initial encounter; Z93.3 Colostomy status; N40.0 Benign prostatic hyperplasia without lower urinary tract symptoms; E78.5 Hyperlipidemia, unspecified; K57.90 Diverticulosis of intestine, part unspecified, without perforation or abscess without bleeding; Z79.84 Long term (current) use of oral hypoglycemic drugs; Z79.899 Other long term (current) drug therapy; Z87.891 Personal history of nicotine dependence

== ENCOUNTER 2024-04-22 09:53 | Emergency (ER) | payer MEDICARE, BC ==
[~2024-04-22] VITALS: Ht 185.4 cm; Wt 98.5 kg
[~2024-04-22 09:53] MED LIST changes: +BACTDSTA PO; +CEFD300CAP PO
[2024-04-22 11:18] LABS: EOS % 0.7 % (0.0-3.0); HEMATOCRIT 39.1 % (42.0-52.0); LYMPH # 1.2 10^3/uL (1.5-5.0); LYMPH % 21.1 % (24.0-44.0); MEAN CORPUSCULAR HEMOGLOBIN 29.6 pg (27.0-33.0); MEAN CORPUSCULAR HGB CONC 33.2 g/dl (32.0-36.5); MEAN CORPUSCULAR VOLUME 89.1 fl (80.0-96.0); MONO # 0.4 10^3/uL (0.0-0.8); MONO % 7.3 % (2.0-8.0); NEUTROPHILS # 3.9 10^3/uL (1.5-8.5); NEUTROPHILS % 70.5 % (36.0-66.0); PLATELET COUNT, AUTOMATED 152 10^3/uL (150-450); RED BLOOD COUNT 4.39 10^6/uL (4.30-6.10); WHITE BLOOD COUNT 5.5 10^3/uL (4.0-10.0)
[2024-04-22] MEDS ORDERED: BACT800T5 PO (11:31)
[2024-04-22 11:45] LABS: ALBUMIN 3.2 G/DL (3.2-5.2); ALKALINE PHOSPHATASE 81 U/L (40-129); ALT/SGPT 15 U/L (7.0-40); AST/SGOT 15 U/L (<34); BILIRUBIN,TOTAL 0.8 MG/DL (0.3-1.2); BLOOD UREA NITROGEN 9 MG/DL (9-23); CALCIUM LEVEL 9.4 MG/DL (8.3-10.6); CARBON DIOXIDE LEVEL 28 MMOL/L (20-31); CHLORIDE LEVEL 100 MMOL/L (98-107); CREATININE FOR GFR 0.66 MG/DL (0.70-1.30); GLOMERULAR FILTRATION RATE > 60.0 (>42); GLUCOSE, FASTING 123 MG/DL (74-106); POTASSIUM SERUM 4.2 MMOL/L (3.5-5.1); SODIUM LEVEL 136 MMOL/L (136-145); TOTAL PROTEIN 7.6 G/DL (5.7-8.2)
[2024-04-22 12:07] LABS: KETONE, URINE AUTO RFX NEGATIVE (NEGATIVE); NITRITE, URINE AUTO RFX NEGATIVE (NEGATIVE); RBC, URINE AUTO RFX 8 /HPF (0-3); SQUAM EPITHELIAL CELL UR AURFX 0 /HPF (0-6)
[2024-04-22 12:09] LABS: LEUKOCYTE ESTERASE UR AUTO RFX 3+ (NEGATIVE); WBC, URINE AUTO RFX TNTC /HPF (0-3)
[2024-04-22] MEDS ORDERED: CEPHALEXIN 500 MG CAP PO ONE (14:10)
[2024-04-22] MEDS ORDERED: CEPH500C PO (14:16)
[2024-04-22 14:46] VITALS: BP 119/67
[2024-04-22] MEDS: CEPHALEXIN 500 MG CAP PO ONE (14:46)
[2024-04-22 14:48] VITALS: TEMP 97.7; O2SAT 97
== END 2024-04-22 15:59 | disposition home or self-care (01) ==
LOC: EDBD 09:53 → M ED 09:53 → EEVIPCON 09:53 → M ED 15:59
DX: R41.82 Altered mental status, unspecified (principal); E11.9 Type 2 diabetes mellitus without complications; E78.5 Hyperlipidemia, unspecified; N40.0 Benign prostatic hyperplasia without lower urinary tract symptoms; Z79.2 Long term (current) use of antibiotics; Z79.84 Long term (current) use of oral hypoglycemic drugs; Z79.810 Long term (current) use of selective estrogen receptor modulators (SERMs); Z79.899 Other long term (current) drug therapy

== ENCOUNTER 2024-06-01 10:25 | Inpatient (IN) | payer MEDICARE, BC ==
[~2024-06-01] VITALS: Ht 185.4 cm; Wt 102.8 kg
[2024-06-01] MEDS: NS 0.9% IV ONE (11:15)
[2024-06-01] MEDS: [UNRECOGNIZED DRUG - OTHER] IV ONE (11:15)
[2024-06-01] MEDS: cefTRIAXone SOD 2 GM in DEXTROSE 5% (D5W) ADV/MINI-BAG 50 ML IV ONE (11:20)
[2024-06-01 11:57] LABS: VENOUS BASE EXCESS 0.3 (-2.0-2.0); VENOUS HCO3 25.7 MMOL/L (23.0-27.0); VENOUS O2 SATURATION 83.6 % (60.0-80.0); VENOUS PARTIAL PRESSURE CO2 44.4 mmHg (38.0-50.0); VENOUS PARTIAL PRESSURE O2 50.4 mmHg (30.0-50.0); VENOUS PH 7.381 UNITS (7.330-7.430); VENOUS STANDARD HCO3 24.5 MMOL/L; VENOUS TOTAL CO2 27.1 MMOL/L (24.0-28.0)
[2024-06-01 12:11] LABS: APPEARANCE, URINE CLOUDY (CLEAR); BACTERIA, URINE AUTO 1+ (NEGATIVE); BILIRUBIN, URINE AUTO NEGATIVE (NEGATIVE); BLOOD, URINE BLOOD 2+ (NEGATIVE); COLOR, URINE YELLOW (YELLOW); GLUCOSE, URINE (UA) AUTO NEGATIVE (NEGATIVE); KETONE, URINE AUTO NEGATIVE (NEGATIVE); LEUKOCYTE ESTERASE, URINE AUTO 3+ (NEGATIVE); MUCUS, URINE SMALL (NEGATIVE); NITRITE, URINE AUTO NEGATIVE (NEGATIVE); PROTEIN, URINE AUTO 2+ mg/dL (NEGATIVE); RBC, URINE AUTO 60 /HPF (0-3); SPECIFIC GRAVITY URINE AUTO 1.009 (1.002-1.035); SQUAMOUS EPITHELIAL CELL UR AU 0 /HPF (0-6); UROBILINOGEN, URINE AUTO 0.2 mg/dL (0.0-2.0); WBC, URINE AUTO TNTC /HPF (0-3)
[2024-06-01 12:20] LABS: EOS % 0.2 % (0.0-3.0); HEMATOCRIT 37.4 % (42.0-52.0); HEMOGLOBIN 12.3 g/dl (13.5-17.5); LYMPH # 1.1 10^3/uL (1.5-5.0); MEAN CORPUSCULAR HEMOGLOBIN 29.5 pg (27.0-33.0); MEAN CORPUSCULAR HGB CONC 32.9 g/dl (32.0-36.5); MEAN CORPUSCULAR VOLUME 89.7 fl (80.0-96.0); MONO # 0.7 10^3/uL (0.0-0.8); NEUTROPHILS # 10.2 10^3/uL (1.5-8.5); NEUTROPHILS % 84.3 % (36.0-66.0); PLATELET COUNT, AUTOMATED 157 10^3/uL (150-450); RED BLOOD COUNT 4.17 10^6/uL (4.30-6.10); WHITE BLOOD COUNT 12.1 10^3/uL (4.0-10.0)
[2024-06-01 12:32] LABS: INR 1.17; PARTIAL THROMBOPLASTIN TIME 36.2 SECONDS (24.8-34.2); PROTHROMBIN TIME 15.2 SECONDS (12.5-14.5)
[2024-06-01 12:37] LABS: ALBUMIN 2.9 G/DL (3.2-5.2); ALKALINE PHOSPHATASE 77 U/L (40-129); ALT/SGPT 15 U/L (7.0-40); AST/SGOT 24 U/L (<34); BILIRUBIN,DIRECT 0.5 MG/DL (<0.4); BILIRUBIN,TOTAL 1.5 MG/DL (0.3-1.2); BLOOD UREA NITROGEN 18 MG/DL (9-23); C REACTIVE PROTEIN QUANTITATIV 8.77 MG/DL (<1.0); CALCIUM LEVEL 9.2 MG/DL (8.3-10.6); CARBON DIOXIDE LEVEL 26 MMOL/L (20-31); CHLORIDE LEVEL 101 MMOL/L (98-107); CREATININE FOR GFR 0.87 MG/DL (0.70-1.30); GLOMERULAR FILTRATION RATE > 60.0 (>42); GLUCOSE, FASTING 181 MG/DL (74-106); POTASSIUM SERUM 4.2 MMOL/L (3.5-5.1); SODIUM LEVEL 137 MMOL/L (136-145); TOTAL PROTEIN 6.7 G/DL (5.7-8.2)
[2024-06-01 12:44] LABS: AMYLASE < 20 U/L (30-118); PROCALCITONIN 0.17 ng/ml
[2024-06-01] MEDS: NS (Normal Saline) 0.9% 1,000 ML IV ONE (15:15)
[2024-06-01] MEDS ORDERED: HOME MED LIST COMPLETE! XX SCH (15:45)
[2024-06-01] MEDS ORDERED: VANCOMYCIN HCL 1,000 MG, VIAL MATE ADAPTER 1 EACH in NS 250 ML IV SCH (19:15)
[2024-06-01] MEDS ORDERED: MIRALAX *UNIT DOSE* 17GM PACKET PO PRN (20:10)
[2024-06-01] MEDS ORDERED: PILL CUTTER 1 EACH XX PRN (21:00)
[2024-06-01] MEDS: SIMVASTATIN 20 MG TAB PO SCH (23:11)
[2024-06-01] MEDS: ASCORBIC ACID 500 MG TAB PO SCH (23:11)
[2024-06-01] MEDS: BACLOFEN 10 MG TAB PO SCH (23:11)
[2024-06-01] MEDS: MAGNESIUM OXIDE 400MG TAB (MAG-OX) PO SCH (23:11)
[2024-06-01] MEDS: ERTAPENEM SODIUM 1 GM in NS MINI-BAG PLUS 50 ML IV SCH (23:11)
[2024-06-01] MEDS: VANCOMYCIN HCL 2,000 MG, VIAL MATE ADAPTER 1 EACH in NS 500 ML IV ONE (23:56)
[2024-06-02 07:07] LABS: EOS % 0.3 % (0.0-3.0); HEMOGLOBIN 10.8 g/dl (13.5-17.5); LYMPH % 14.2 % (24.0-44.0); MEAN CORPUSCULAR HEMOGLOBIN 29.4 pg (27.0-33.0); MEAN CORPUSCULAR HGB CONC 32.7 g/dl (32.0-36.5); MEAN CORPUSCULAR VOLUME 89.9 fl (80.0-96.0); MONO # 0.6 10^3/uL (0.0-0.8); MONO % 8.6 % (2.0-8.0); NEUTROPHILS # 5.3 10^3/uL (1.5-8.5); NEUTROPHILS % 76.5 % (36.0-66.0); PLATELET COUNT, AUTOMATED 113 10^3/uL (150-450); RED BLOOD COUNT 3.67 10^6/uL (4.30-6.10)
[2024-06-02 07:38] LABS: BLOOD UREA NITROGEN 12 MG/DL (9-23); CALCIUM LEVEL 7.8 MG/DL (8.3-10.6); CARBON DIOXIDE LEVEL 25 MMOL/L (20-31); CHLORIDE LEVEL 107 MMOL/L (98-107); CREATININE FOR GFR 0.62 MG/DL (0.70-1.30); GLOMERULAR FILTRATION RATE > 60.0 (>42); GLUCOSE, FASTING 97 MG/DL (74-106); POTASSIUM SERUM 3.4 MMOL/L (3.5-5.1); SODIUM LEVEL 139 MMOL/L (136-145)
[2024-06-02] MEDS: FINASTERIDE 5MG TAB PO SCH (08:46)
[2024-06-02] MEDS: SITagliptin 50 MG TAB (JANUVIA) PO SCH (08:46)
[2024-06-02] MEDS: VANCOMYCIN HCL 1,250 MG, VIAL MATE ADAPTER 1 EACH in NS 250 ML IV SCH (08:47)
[2024-06-02] MEDS: ENOXAPARIN 40MG/0.4ML SYRINGE (J1650 PER 10MG) SC SCH (08:47)
[2024-06-02 11:35] VITALS: BP 99/54; TEMP 98.6; O2SAT 96
[2024-06-02] MEDS: SOLIFENACIN 5 MG TAB PO SCH (12:41)
[2024-06-02] MEDS: POTASSIUM CHLORIDE 10MEQ SR TABLET PO SCH (12:42)
[2024-06-02] MEDS: VANCOMYCIN HCL 750 MG, VIAL MATE ADAPTER 1 EACH in NS 250 ML IV SCH (15:34)
[2024-06-02 15:54] VITALS: BP 104/51; TEMP 98.8; O2SAT 95
[2024-06-02 19:35] VITALS: BP 113/75; TEMP 98.9; O2SAT 95
[2024-06-02 23:22] VITALS: BP 103/52; TEMP 98.1; O2SAT 94
[2024-06-03 04:54] VITALS: BP 107/59; TEMP 98.1; O2SAT 95
[2024-06-03 06:07] LABS: EOS # 0.1 10^3/uL (0.0-0.5); EOS % 1.2 % (0.0-3.0); HEMOGLOBIN 10.1 g/dl (13.5-17.5); LYMPH % 19.5 % (24.0-44.0); MEAN CORPUSCULAR HEMOGLOBIN 29.4 pg (27.0-33.0); MEAN CORPUSCULAR HGB CONC 32.6 g/dl (32.0-36.5); MEAN CORPUSCULAR VOLUME 90.1 fl (80.0-96.0); MONO # 0.5 10^3/uL (0.0-0.8); MONO % 9.1 % (2.0-8.0); NEUTROPHILS # 3.6 10^3/uL (1.5-8.5); NEUTROPHILS % 69.6 % (36.0-66.0); PLATELET COUNT, AUTOMATED 107 10^3/uL (150-450); RED BLOOD COUNT 3.44 10^6/uL (4.30-6.10); WHITE BLOOD COUNT 5.2 10^3/uL (4.0-10.0)
[2024-06-03 06:19] LABS: BLOOD UREA NITROGEN 10 MG/DL (9-23); CARBON DIOXIDE LEVEL 26 MMOL/L (20-31); CHLORIDE LEVEL 105 MMOL/L (98-107); GLOMERULAR FILTRATION RATE > 60.0 (>42); GLUCOSE, FASTING 125 MG/DL (74-106); POTASSIUM SERUM 3.5 MMOL/L (3.5-5.1); SODIUM LEVEL 138 MMOL/L (136-145)
[2024-06-03 07:55] VITALS: BP 125/58; TEMP 98.6; O2SAT 96
[2024-06-03 12:28] VITALS: BP 116/56; TEMP 97.5; O2SAT 96
[2024-06-03 16:07] VITALS: BP 142/65; TEMP 97.4; O2SAT 95
[2024-06-03 19:28] VITALS: BP 133/62; TEMP 97.5; O2SAT 95
[2024-06-03 23:49] VITALS: BP 121/58; TEMP 98.2; O2SAT 96
[2024-06-04 04:30] VITALS: BP 131/84; TEMP 98.5; O2SAT 97
[2024-06-04 07:22] LABS: BASO % 0.2 % (0.0-1.0); BLOOD UREA NITROGEN 14 MG/DL (9-23); CALCIUM LEVEL 8.4 MG/DL (8.3-10.6); CARBON DIOXIDE LEVEL 27 MMOL/L (20-31); CHLORIDE LEVEL 104 MMOL/L (98-107); CREATININE FOR GFR 0.61 MG/DL (0.70-1.30); EOS # 0.1 10^3/uL (0.0-0.5); EOS % 1.3 % (0.0-3.0); GLOMERULAR FILTRATION RATE > 60.0 (>42); GLUCOSE, FASTING 138 MG/DL (74-106); HEMATOCRIT 31.8 % (42.0-52.0); HEMOGLOBIN 10.5 g/dl (13.5-17.5); LYMPH % 22.2 % (24.0-44.0); MEAN CORPUSCULAR HEMOGLOBIN 29.2 pg (27.0-33.0); MEAN CORPUSCULAR VOLUME 88.3 fl (80.0-96.0); MONO # 0.3 10^3/uL (0.0-0.8); MONO % 6.6 % (2.0-8.0); NEUTROPHILS # 3.1 10^3/uL (1.5-8.5); NEUTROPHILS % 68.8 % (36.0-66.0); PLATELET COUNT, AUTOMATED 139 10^3/uL (150-450); SODIUM LEVEL 139 MMOL/L (136-145); WHITE BLOOD COUNT 4.5 10^3/uL (4.0-10.0)
[2024-06-04 08:26] VITALS: BP 138/63; TEMP 97.7; O2SAT 96
[2024-06-04] MEDS: FOSFOMYCIN TROMETHAMINE 3 GM POWDER PACKET (MONUROL) PO SCH (09:53)
[2024-06-04] MEDS: METHENAMINE HIPPURATE 1GM TABLET PO SCH (09:55)
[2024-06-04 11:44] VITALS: BP 113/57; TEMP 97.4; O2SAT 94
[2024-06-04] MEDS ORDERED: METH-855 PO (13:31)
[2024-06-04] MEDS ORDERED: FOSF3PAC2 PO (13:31)
[2024-06-04 20:45] VITALS: BP 127/60; TEMP 97; O2SAT 98
[2024-06-05 03:47] VITALS: BP 131/63; TEMP 98.3; O2SAT 93
[2024-06-05 06:05] LABS: BASO % 0.2 % (0.0-1.0); EOS # 0.1 10^3/uL (0.0-0.5); EOS % 1.9 % (0.0-3.0); HEMATOCRIT 33.6 % (42.0-52.0); HEMOGLOBIN 11.2 g/dl (13.5-17.5); LYMPH # 1.2 10^3/uL (1.5-5.0); LYMPH % 25.7 % (24.0-44.0); MEAN CORPUSCULAR HEMOGLOBIN 29.5 pg (27.0-33.0); MEAN CORPUSCULAR HGB CONC 33.3 g/dl (32.0-36.5); MEAN CORPUSCULAR VOLUME 88.4 fl (80.0-96.0); MONO # 0.3 10^3/uL (0.0-0.8); MONO % 6.8 % (2.0-8.0); NEUTROPHILS # 3.1 10^3/uL (1.5-8.5); NEUTROPHILS % 64.6 % (36.0-66.0); PLATELET COUNT, AUTOMATED 149 10^3/uL (150-450); WHITE BLOOD COUNT 4.8 10^3/uL (4.0-10.0)
[2024-06-05 06:23] LABS: BLOOD UREA NITROGEN 15 MG/DL (9-23); CALCIUM LEVEL 8.8 MG/DL (8.3-10.6); CARBON DIOXIDE LEVEL 27 MMOL/L (20-31); CHLORIDE LEVEL 105 MMOL/L (98-107); CREATININE FOR GFR 0.63 MG/DL (0.70-1.30); GLOMERULAR FILTRATION RATE > 60.0 (>42); GLUCOSE, FASTING 129 MG/DL (74-106); SODIUM LEVEL 137 MMOL/L (136-145)
[2024-06-05 08:00] VITALS: BP 137/68; TEMP 97.5; O2SAT 97
== END 2024-06-05 13:30 | DRG 698 ==
LOC: M ED 10:25 → EDBD 10:25 → M ED INP 19:12 → M PCU 06-02 11:17
PROVIDERS: ADMIT Internal Medicine Nephrology; ATTEND Student in an Organized Health Care Education/Training Program
DX: T83.511A Infection and inflammatory reaction due to indwelling urethral catheter, initial encounter (principal); G82.50 Quadriplegia, unspecified; A41.9 Sepsis, unspecified organism; L89.153 Pressure ulcer of sacral region, stage 3; K59.2 Neurogenic bowel, not elsewhere classified; N13.4 Hydroureter; L89.212 Pressure ulcer of right hip, stage 2; N31.9 Neuromuscular dysfunction of bladder, unspecified; S14.109S Unspecified injury at unspecified level of cervical spinal cord, sequela; E11.9 Type 2 diabetes mellitus without complications; T83.031A Leakage of indwelling urethral catheter, initial encounter; Y84.6 Urinary catheterization as the cause of abnormal reaction of the patient, or of later complication, without mention of misadventure at the time of the procedure; N40.0 Benign prostatic hyperplasia without lower urinary tract symptoms; E78.5 Hyperlipidemia, unspecified; B96.20 Unspecified Escherichia coli [E. coli] as the cause of diseases classified elsewhere; E87.6 Hypokalemia; T83.021A Displacement of indwelling urethral catheter, initial encounter; N21.0 Calculus in bladder; Z93.3 Colostomy status; Z79.84 Long term (current) use of oral hypoglycemic drugs; Z79.899 Other long term (current) drug therapy

== ENCOUNTER → 2024-06-09 | Outpatient (REF) | payer MEDICARE, BC, MEDICAID ==
[~2024-06-09] MED LIST changes: +CIPR500T39 PO; +FOSF3PAC2 PO; +OXYB5TAB14 PO
[2024-06-09 09:24] LABS: BASO % 0.2 % (0.0-1.0); EOS # 0.1 10^3/uL (0.0-0.5); EOS % 0.8 % (0.0-3.0); HEMATOCRIT 38.7 % (42.0-52.0); HEMOGLOBIN 12.5 g/dl (13.5-17.5); LYMPH # 1.3 10^3/uL (1.5-5.0); LYMPH % 20.6 % (24.0-44.0); MEAN CORPUSCULAR HEMOGLOBIN 28.7 pg (27.0-33.0); MEAN CORPUSCULAR HGB CONC 32.3 g/dl (32.0-36.5); MONO # 0.3 10^3/uL (0.0-0.8); MONO % 4.3 % (2.0-8.0); NEUTROPHILS # 4.6 10^3/uL (1.5-8.5); NEUTROPHILS % 73.3 % (36.0-66.0); PLATELET COUNT, AUTOMATED 203 10^3/uL (150-450); RED BLOOD COUNT 4.35 10^6/uL (4.30-6.10); WHITE BLOOD COUNT 6.3 10^3/uL (4.0-10.0)
[2024-06-09 09:54] LABS: BLOOD UREA NITROGEN 18 MG/DL (9-23); CALCIUM LEVEL 9.4 MG/DL (8.3-10.6); CARBON DIOXIDE LEVEL 26 MMOL/L (20-31); CHLORIDE LEVEL 104 MMOL/L (98-107); CREATININE FOR GFR 0.56 MG/DL (0.70-1.30); GLOMERULAR FILTRATION RATE > 60.0 (>42); GLUCOSE, FASTING 135 MG/DL (74-106); MAGNESIUM LEVEL 1.5 MG/DL (1.8-2.4); POTASSIUM SERUM 4.2 MMOL/L (3.5-5.1); SODIUM LEVEL 137 MMOL/L (136-145)
== END ==
LOC: SKLAB2 07:00
PROVIDERS: ATTEND Internal Medicine
DX: N39.0 Urinary tract infection, site not specified (principal); E11.9 Type 2 diabetes mellitus without complications; E83.42 Hypomagnesemia

== ENCOUNTER 2024-07-20 11:36 | Emergency (ER) | payer MEDICARE, BC, MEDICAID ==
[~2024-07-20] VITALS: Ht 180.3 cm; Wt 100.7 kg
[~2024-07-20 11:36] MED LIST changes: -CIPR500T39 PO; -OXYB5TAB14 PO
[2024-07-20 19:41] LABS: KETONE, URINE AUTO RFX TRACE mg/dL (NEGATIVE); MUCUS, URINE RFX SMALL (NEGATIVE); NITRITE, URINE AUTO RFX NEGATIVE (NEGATIVE); RBC, URINE AUTO RFX 11 /HPF (0-3); SQUAM EPITHELIAL CELL UR AURFX 0 /HPF (0-6)
[2024-07-20 19:50] LABS: LEUKOCYTE ESTERASE UR AUTO RFX 3+ (NEGATIVE); WBC, URINE AUTO RFX 88 /HPF (0-3)
[2024-07-20] MEDS ORDERED: OXYB5TAB14 PO (20:11)
[2024-07-20] MEDS ORDERED: CIPR500T39 PO (20:11)
[2024-07-20 21:15] VITALS: O2SAT 95
[2024-07-20 21:16] VITALS: BP 95/47
[2024-07-20 21:33] VITALS: TEMP 98
== END 2024-07-20 21:38 | disposition home or self-care (01) ==
LOC: EDBD 11:36 → M ED 11:36
DX: N39.0 Urinary tract infection, site not specified (principal); Z79.2 Long term (current) use of antibiotics; Z79.84 Long term (current) use of oral hypoglycemic drugs; Z79.899 Other long term (current) drug therapy

== ENCOUNTER 2024-07-22 15:46 | Observation (INO) | payer MEDICARE, BC, MEDICAID ==
[~2024-07-22] VITALS: Ht 177.8 cm; Wt 100.9 kg
[~2024-07-22 15:46] MED LIST changes: +CIPR500T39 PO; +OXYB5TAB14 PO
[2024-07-22 16:34] LABS: EOS # 0.1 10^3/uL (0.0-0.5); EOS % 2.5 % (0.0-3.0); HEMATOCRIT 39.1 % (42.0-52.0); HEMOGLOBIN 12.6 g/dl (13.5-17.5); LYMPH # 1.5 10^3/uL (1.5-5.0); LYMPH % 32.1 % (24.0-44.0); MEAN CORPUSCULAR HEMOGLOBIN 29.1 pg (27.0-33.0); MEAN CORPUSCULAR HGB CONC 32.2 g/dl (32.0-36.5); MEAN CORPUSCULAR VOLUME 90.3 fl (80.0-96.0); MONO # 0.4 10^3/uL (0.0-0.8); MONO % 7.5 % (2.0-8.0); NEUTROPHILS # 2.8 10^3/uL (1.5-8.5); NEUTROPHILS % 57.3 % (36.0-66.0); RED BLOOD COUNT 4.33 10^6/uL (4.30-6.10); WHITE BLOOD COUNT 4.8 10^3/uL (4.0-10.0)
[2024-07-22 16:58] LABS: BLOOD UREA NITROGEN 17 MG/DL (9-23); CALCIUM LEVEL 8.9 MG/DL (8.3-10.6); CARBON DIOXIDE LEVEL 30 MMOL/L (20-31); CHLORIDE LEVEL 103 MMOL/L (98-107); CREATININE FOR GFR 0.55 MG/DL (0.70-1.30); GLOMERULAR FILTRATION RATE > 60.0 (>42); GLUCOSE, FASTING 127 MG/DL (74-106); PLATELET COUNT, AUTOMATED 166 10^3/uL (150-450); POTASSIUM SERUM 4.4 MMOL/L (3.5-5.1); SODIUM LEVEL 141 MMOL/L (136-145)
[2024-07-22] MEDS ORDERED: DEXTROSE 50% 50ML SYRINGE IV PRN (17:15)
[2024-07-22] MEDS ORDERED: GLUCOSE 4 GM CHEW PO PRN (17:15)
[2024-07-22] MEDS ORDERED: GLUCAGON INJ 1MG VIAL SC PRN (17:15)
[2024-07-22] MEDS: INSULIN LISPRO (NovoLOG) PER UNIT SC SCH ×2 (17:30→21:00)
[2024-07-22] MEDS ORDERED: CIPR-249 PO (17:51)
[2024-07-22] MEDS ORDERED: METF-838 PO (17:51)
[2024-07-22] MEDS ORDERED: MAGN400T35 PO (17:51)
[2024-07-22] MEDS ORDERED: OXYB5TAB14 PO (17:51)
[2024-07-22] MEDS ORDERED: SENN-186 PO (17:54)
[2024-07-22] MEDS ORDERED: HOME MED LIST COMPLETE! XX SCH (17:55)
[2024-07-22] MEDS ORDERED: CIPROFLOXACIN 500MG TABLET PO SCH (21:00)
[2024-07-22] MEDS: MAGNESIUM OXIDE 400MG TAB (MAG-OX) PO SCH (21:20)
[2024-07-22] MEDS: ASCORBIC ACID 500 MG TAB PO SCH (21:20)
[2024-07-22] MEDS: BACLOFEN 10 MG TAB PO SCH (21:21)
[2024-07-22] MEDS: oxyBUTYnin 5 MG TAB PO SCH (21:21)
[2024-07-22] MEDS: SIMVASTATIN 20 MG TAB PO SCH (21:21)
[2024-07-22 22:07] VITALS: BP 123/60; TEMP 98.2; O2SAT 96
[2024-07-23 03:31] VITALS: BP 135/67; TEMP 98.8; O2SAT 96
[2024-07-23] MEDS: CIPROFLOXACIN 500MG TABLET PO SCH (06:09)
[2024-07-23] MEDS: ENOXAPARIN 40MG/0.4ML SYRINGE (J1650 PER 10MG) SC SCH (08:21)
[2024-07-23] MEDS: FINASTERIDE 5MG TAB PO SCH (08:22)
[2024-07-23] MEDS: POTASSIUM CHLORIDE 10MEQ SR TABLET PO SCH (08:22)
[2024-07-23 20:00] VITALS: BP 125/63; TEMP 99.1; O2SAT 94
[2024-07-24 04:00] VITALS: BP 123/59; TEMP 98.2; O2SAT 98
[2024-07-25 04:00] VITALS: BP 103/61; TEMP 98.1; O2SAT 97
== END 2024-07-25 10:05 | disposition home or self-care (01) ==
LOC: EDBD 15:46 → M ED 15:46 → M ED INP 15:47 → M MSPAV 22:02
PROVIDERS: ADMIT Internal Medicine; ATTEND Internal Medicine
DX: G82.50 Quadriplegia, unspecified (principal); Z74.2 Need for assistance at home and no other household member able to render care; S14.109S Unspecified injury at unspecified level of cervical spinal cord, sequela; Y93.9 Activity, unspecified; Z74.01 Bed confinement status; Z99.89 Dependence on other enabling machines and devices; Z96.0 Presence of urogenital implants; Z87.440 Personal history of urinary (tract) infections; N31.8 Other neuromuscular dysfunction of bladder; N40.1 Benign prostatic hyperplasia with lower urinary tract symptoms; E11.9 Type 2 diabetes mellitus without complications; E78.5 Hyperlipidemia, unspecified; N32.81 Overactive bladder; N39.0 Urinary tract infection, site not specified; B96.4 Proteus (mirabilis) (morganii) as the cause of diseases classified elsewhere; Z79.899 Other long term (current) drug therapy; Z79.2 Long term (current) use of antibiotics; Z79.84 Long term (current) use of oral hypoglycemic drugs
CPT/HCPCS: 80048; 85025; 96372; 99284; G0378; J1650; J1815

== ENCOUNTER 2024-08-08 14:50 | Observation (INO) | payer MEDICARE, BC, MEDICAID ==
[~2024-08-08] VITALS: Ht 177.8 cm; Wt 106.2 kg
[~2024-08-08 14:50] MED LIST changes: +MAGN400T35 PO; +METF-838 PO; +SENN-186 PO
[2024-08-08] MEDS ORDERED: BACL1TAB9 PO (17:16)
[2024-08-08] MEDS ORDERED: HOME MED LIST COMPLETE! XX SCH (17:20)
[2024-08-08 18:24] VITALS: BP 146/76; TEMP 97.5; O2SAT 97
[2024-08-08] MEDS ORDERED: MIRALAX *UNIT DOSE* 17GM PACKET PO PRN (21:45)
[2024-08-08] MEDS ORDERED: SENNA 8.6 MG TAB (SENOKOT) PO PRN (21:45)
[2024-08-08] MEDS ORDERED: PILL CUTTER 1 EACH XX PRN (22:00)
[2024-08-08] MEDS: ENOXAPARIN 40MG/0.4ML SYRINGE (J1650 PER 10MG) SC ONE (22:37)
[2024-08-08] MEDS: ASCORBIC ACID 500 MG TAB PO SCH (22:37)
[2024-08-08] MEDS: BACLOFEN 10 MG TAB PO SCH (22:37)
[2024-08-08] MEDS: SIMVASTATIN 20 MG TAB PO SCH (22:37)
[2024-08-08] MEDS: oxyBUTYnin 5 MG TAB PO SCH (22:37)
[2024-08-08] MEDS: MAGNESIUM OXIDE 400MG TAB (MAG-OX) PO SCH (22:37)
[2024-08-09 04:03] VITALS: BP 130/57; TEMP 97.5; O2SAT 97
[2024-08-09] MEDS: POTASSIUM CHLORIDE 10MEQ SR TABLET PO SCH (08:53)
[2024-08-09] MEDS: FINASTERIDE 5MG TAB PO SCH (08:55)
[2024-08-09] MEDS: SITagliptin 50 MG TAB (JANUVIA) PO SCH (08:55)
[2024-08-09] MEDS: metFORMIN XR 500MG TAB *GLUCOPHAGE XR PO SCH (09:00)
[2024-08-09 12:00] VITALS: BP 128/62; TEMP 97.6; O2SAT 96
[2024-08-09 19:48] VITALS: BP 140/50; TEMP 98.1; O2SAT 96
[2024-08-09] MEDS: ENOXAPARIN 40MG/0.4ML SYRINGE (J1650 PER 10MG) SC SCH (21:04)
[2024-08-10 03:46] VITALS: BP 104/51; TEMP 97.7; O2SAT 96
[2024-08-11 03:53] VITALS: BP 128/57; TEMP 97.3; O2SAT 96
[2024-08-11 06:18] LABS: HEMATOCRIT 37.4 % (42.0-52.0); HEMOGLOBIN 12.2 g/dl (13.5-17.5); MEAN CORPUSCULAR HEMOGLOBIN 29.1 pg (27.0-33.0); MEAN CORPUSCULAR HGB CONC 32.6 g/dl (32.0-36.5); MEAN CORPUSCULAR VOLUME 89.3 fl (80.0-96.0); PLATELET COUNT, AUTOMATED 125 10^3/uL (150-450); RED BLOOD COUNT 4.19 10^6/uL (4.30-6.10); WHITE BLOOD COUNT 6.4 10^3/uL (4.0-10.0)
[2024-08-11 06:49] LABS: BLOOD UREA NITROGEN 14 MG/DL (9-23); CALCIUM LEVEL 8.6 MG/DL (8.3-10.6); CARBON DIOXIDE LEVEL 24 MMOL/L (20-31); CHLORIDE LEVEL 102 MMOL/L (98-107); CREATININE FOR GFR 0.62 MG/DL (0.70-1.30); GLOMERULAR FILTRATION RATE > 60.0 (>42); GLUCOSE, FASTING 116 MG/DL (74-106); POTASSIUM SERUM 3.7 MMOL/L (3.5-5.1); SODIUM LEVEL 135 MMOL/L (136-145)
[2024-08-12 03:39] VITALS: BP 112/52; TEMP 97.9; O2SAT 96
[2024-08-13 03:49] VITALS: BP 126/68; TEMP 97.3; O2SAT 96
[2024-08-14 03:51] VITALS: BP 127/66; TEMP 97.3; O2SAT 98
[2024-08-15 03:55] VITALS: BP 129/64; TEMP 97.5; O2SAT 97
[2024-08-16 04:18] VITALS: BP 108/55; TEMP 98.1; O2SAT 98
[2024-08-17 03:58] VITALS: BP 113/54; TEMP 97.3; O2SAT 97
[2024-08-18 04:00] VITALS: BP 114/55; TEMP 97.3; O2SAT 98
[2024-08-18 07:02] LABS: HEMATOCRIT 37.2 % (42.0-52.0); MEAN CORPUSCULAR HEMOGLOBIN 28.8 pg (27.0-33.0); MEAN CORPUSCULAR HGB CONC 32.3 g/dl (32.0-36.5); MEAN CORPUSCULAR VOLUME 89.2 fl (80.0-96.0); PLATELET COUNT, AUTOMATED 171 10^3/uL (150-450); RED BLOOD COUNT 4.17 10^6/uL (4.30-6.10)
[2024-08-18 07:32] LABS: BLOOD UREA NITROGEN 23 MG/DL (9-23); CALCIUM LEVEL 8.7 MG/DL (8.3-10.6); CARBON DIOXIDE LEVEL 26 MMOL/L (20-31); CHLORIDE LEVEL 103 MMOL/L (98-107); CREATININE FOR GFR 0.58 MG/DL (0.70-1.30); GLOMERULAR FILTRATION RATE > 60.0 (>42); GLUCOSE, FASTING 99 MG/DL (74-106); POTASSIUM SERUM 3.8 MMOL/L (3.5-5.1); SODIUM LEVEL 138 MMOL/L (136-145)
[2024-08-19 04:03] VITALS: BP 124/60; TEMP 97.5; O2SAT 98
[2024-08-19 10:40] VITALS: O2SAT 98
[2024-08-20 04:07] VITALS: BP 130/59; TEMP 97.2; O2SAT 97
[2024-08-21 05:26] VITALS: BP 92/50; TEMP 97.3
[2024-08-22 03:52] VITALS: BP 115/54; TEMP 97.5; O2SAT 98
[2024-08-22 19:25] VITALS: BP 116/55; TEMP 97.5; O2SAT 19
[2024-08-23 03:49] VITALS: BP 107/45; TEMP 97.5; O2SAT 95
[2024-08-24 03:57] VITALS: BP 132/69; TEMP 97.9; O2SAT 96
[2024-08-25 05:35] VITALS: BP 115/53; TEMP 97.3; O2SAT 96
[2024-08-25 07:06] LABS: HEMATOCRIT 36.6 % (42.0-52.0); HEMOGLOBIN 12.2 g/dl (13.5-17.5); MEAN CORPUSCULAR HEMOGLOBIN 29.2 pg (27.0-33.0); MEAN CORPUSCULAR HGB CONC 33.3 g/dl (32.0-36.5); MEAN CORPUSCULAR VOLUME 87.6 fl (80.0-96.0); PLATELET COUNT, AUTOMATED 148 10^3/uL (150-450); RED BLOOD COUNT 4.18 10^6/uL (4.30-6.10); WHITE BLOOD COUNT 3.8 10^3/uL (4.0-10.0)
[2024-08-25 07:29] LABS: BLOOD UREA NITROGEN 16 MG/DL (9-23); CALCIUM LEVEL 8.4 MG/DL (8.3-10.6); CARBON DIOXIDE LEVEL 25 MMOL/L (20-31); CHLORIDE LEVEL 100 MMOL/L (98-107); CREATININE FOR GFR 0.49 MG/DL (0.70-1.30); GLOMERULAR FILTRATION RATE > 90.0 (>42); GLUCOSE, FASTING 105 MG/DL (74-106); SODIUM LEVEL 134 MMOL/L (136-145)
[2024-08-26 05:30] VITALS: BP 124/58; TEMP 97.3; O2SAT 94
[2024-08-27 04:55] VITALS: BP 123/62; TEMP 97.2; O2SAT 92
[2024-08-28 04:49] VITALS: BP 127/62; TEMP 97.2; O2SAT 96
[2024-08-29 04:00] VITALS: BP 113/49; TEMP 97.3; O2SAT 95
[2024-08-30 03:57] VITALS: BP 126/70; TEMP 97.5; O2SAT 97
[2024-08-31 04:00] VITALS: BP 111/48; TEMP 97.3; O2SAT 96
[2024-09-01 04:00] VITALS: BP 138/73; TEMP 97.3; O2SAT 95
[2024-09-01 06:37] LABS: HEMATOCRIT 38.8 % (42.0-52.0); HEMOGLOBIN 12.5 g/dl (13.5-17.5); MEAN CORPUSCULAR HEMOGLOBIN 28.7 pg (27.0-33.0); MEAN CORPUSCULAR HGB CONC 32.2 g/dl (32.0-36.5); MEAN CORPUSCULAR VOLUME 89.2 fl (80.0-96.0); PLATELET COUNT, AUTOMATED 172 10^3/uL (150-450); RED BLOOD COUNT 4.35 10^6/uL (4.30-6.10)
[2024-09-01 07:01] LABS: BLOOD UREA NITROGEN 18 MG/DL (9-23); CALCIUM LEVEL 8.9 MG/DL (8.3-10.6); CARBON DIOXIDE LEVEL 29 MMOL/L (20-31); CHLORIDE LEVEL 99 MMOL/L (98-107); GLOMERULAR FILTRATION RATE > 90.0 (>42); GLUCOSE, FASTING 127 MG/DL (74-106); POTASSIUM SERUM 3.8 MMOL/L (3.5-5.1); SODIUM LEVEL 137 MMOL/L (136-145)
[2024-09-01 09:18] VITALS: BP 99/53; TEMP 97.5; O2SAT 95
[2024-09-02 04:00] VITALS: BP 140/70; TEMP 97.7; O2SAT 96
[2024-09-02] MEDS: CALCIUM CARBONATE 500 MG CHEW U/D PO PRN (21:40)
[2024-09-03 04:56] VITALS: BP 118/62; TEMP 97.5; O2SAT 96
[2024-09-04 05:19] VITALS: BP 123/66; TEMP 97.5; O2SAT 96
[2024-09-04] MEDS ORDERED: CALC200T15 PO (18:30)
[2024-09-04] MEDS ORDERED: HYDR25OIN TOP (18:44)
[2024-09-05 05:27] VITALS: BP 121/66; TEMP 97.3; O2SAT 96
== END 2024-09-05 08:10 ==
LOC: EDBD 14:50 → M ED 14:50 → M ED INP 14:51 → M MS5PR 18:00
PROVIDERS: ADMIT General Practice; ATTEND Internal Medicine
DX: G82.50 Quadriplegia, unspecified (principal); S14.5XXS Injury of cervical sympathetic nerves, sequela; S14.109S Unspecified injury at unspecified level of cervical spinal cord, sequela; Z74.1 Need for assistance with personal care; N31.9 Neuromuscular dysfunction of bladder, unspecified; L89.301 Pressure ulcer of unspecified buttock, stage 1; L89.151 Pressure ulcer of sacral region, stage 1; E87.6 Hypokalemia; E11.620 Type 2 diabetes mellitus with diabetic dermatitis; L21.9 Seborrheic dermatitis, unspecified; N40.1 Benign prostatic hyperplasia with lower urinary tract symptoms; N32.81 Overactive bladder; E78.5 Hyperlipidemia, unspecified; Z74.01 Bed confinement status; Z99.89 Dependence on other enabling machines and devices; Z96.0 Presence of urogenital implants; K59.2 Neurogenic bowel, not elsewhere classified; Z93.3 Colostomy status; Z79.899 Other long term (current) drug therapy; Z79.84 Long term (current) use of oral hypoglycemic drugs; Z66 Do not resuscitate
CPT/HCPCS: 36415; 80048; 85027; 87426; 96372; 99284; G0378; J1650